=== PATIENT | female | born 1985 | race Caucasian/White ===

== ENCOUNTER 2018-07-15 15:19 | Emergency (ER) | payer OTHER ==
[2018-07-15 15:27] VITALS: RESP 18
[2018-07-15] MEDS ORDERED: ONDANSETRON 4 MG/2 ML VIAL IVP STA (15:49)
[2018-07-15] MEDS ORDERED: KETOROLAC 30 MG/ML 1 ML VIAL IVP STA (15:49)
--- NOTE | 2018-07-15 15:55 | ED ---
Skin/Abscess/FB HPI - General Chief complaint: Skin/Abscess/Foreign Body Stated complaint: Rash Time Seen by Provider: 07/15/18 15:30 Source: patient, RN notes reviewed, old records reviewed Mode of arrival: ambulatory Limitations: no limitations - History of Present Illness Initial comments: Patient 32-year-old female who presents emergency department today with multiple complaints. Patient is here from [facility]. She states that she's had a migraine headache, feels generally unwell. She was initially sent in for a rash over her face and leg. She reports that she's been treated for herpes further rash over her face with past 3 days. Patient states that they will not prescribe her any for further Valtrex. Patient denies any fevers or chills. She denies any abdominal pain. She reports that she had a slight cough. Also complains of dysuria. - Related Data Previous Rx's Medication Instructions Recorded Mupirocin 2% Oint [Bactroban 2% 1 applic TOPICAL TID #60 gm 07/15/18 Oint] valACYclovir HCL [Valtrex] 500 mg PO Q12HR #20 tab 07/15/18 Allergies Allergy/AdvReac Type Severity Reaction Status Date / Time No Known Allergies Allergy Verified 07/15/18 15:27 Review of Systems ROS Statement: Those systems with pertinent positive or pertinent negative responses have been documented in the HPI. ROS Other: All systems not noted in ROS Statement are negative. Past Medical History Additional Past Medical History / Comment(s): Hepatitis C History of Any Multi-Drug Resistant Organisms: MRSA Past Surgical History: Section Past Psychological History: ADD/ADHD, Anxiety, Bipolar, Depression, PTSD Smoking Status: Current every day smoker Past Alcohol Use History: None Reported Past Drug Use History: Marijuana, Methamphetamine, Opiates General Exam - General Exam Comments Initial Comments: 32-year-old female. Limitations: no limitations General appearance: alert, in no apparent distress Head exam: Present: atraumatic, normocephalic, normal inspection Eye exam: Present: normal appearance, PERRL, EOMI. Absent: scleral icterus, conjunctival injection, periorbital swelling ENT exam: Present: normal exam, mucous membranes moist, other (6+ shoulder blisterlike lesions over the right cheek. This with herpes.) Neck exam: Present: normal inspection Respiratory exam: Present: normal lung sounds bilaterally Cardiovascular Exam: Present: regular rate, normal rhythm, normal heart sounds. Absent: systolic murmur, diastolic murmur, rubs, gallop, clicks GI/Abdominal exam: Present: soft, normal bowel sounds. Absent: distended, tenderness, guarding, rebound, rigid Neurological exam: Present: alert, oriented X3, CN II-XII intact Psychiatric exam: Present: normal affect, normal mood Skin exam: Present: warm, dry, intact, normal color, other (10 cm scabbed over scar on the right leg. No surrounding erythema concern for sialitis. She has 1 blister like lesion over her calf as well.). Absent: rash Course Vital Signs 07/15/18 15:20 Temperature 98.2 F Pulse Rate 94 Respiratory 18 Rate Blood Pressure 106/67 O2 Sat by Pulse 100 Oximetry Medical Decision Making - Medical Decision Making 32-year-old female presents with general malaise, since she's had some dysuria and slight cough, and is also here for a rash over her face. She has evidence of herpes Symplex over the right cheek. Just was one lesion over her left leg. She has is some scabbing noted. At this time she has no neurological deficits otherwise. We'll. Lungs are clear to auscultation. She is given IV fluids, and lab work obtained. White blood cell count was normal. Urinalysis shows no infection. Chest x-ray was reviewed and normal. Patient was given IV Toradol and Zofran. She states she has improvement of her headache. Patient at this and will be treated for the herpes Symplex lesions with further prescriptions for Valtrex. Discussed return parameters. All questions answered. - Lab Data Result diagrams: 07/15/18 16:30 07/15/18 16:10 Lab Results 07/15/18 07/15/18 07/15/18 Range/Units 16:10 16:10 16:30 WBC 3.8 (3.8-10.6) k/uL RBC 4.61 (3.80-5.40) m/uL Hgb 13.7 (11.4-16.0) gm/dL Hct 40.3 (34.0-46.0) % MCV 87.5 (80.0-100.0) fL MCH 29.8 (25.0-35.0) pg MCHC 34.0 (31.0-37.0) g/dL RDW 12.9 (11.5-15.5) % Plt Count 186 (150-450) k/uL Neutrophils % 57 % Lymphocytes % 34 % Monocytes % 6 % Eosinophils % 1 % Basophils % 0 % Neutrophils # 2.2 (1.3-7.7) k/uL Lymphocytes # 1.3 (1.0-4.8) k/uL Monocytes # 0.2 (0-1.0) k/uL Eosinophils # 0.0 (0-0.7) k/uL Basophils # 0.0 (0-0.2) k/uL Sodium 141 (137-145) mmol/L Potassium 4.1 (3.5-5.1) mmol/L Chloride 110 H (98-107) mmol/L Carbon Dioxide 27 (22-30) mmol/L Anion Gap 4 mmol/L BUN 17 (7-17) mg/dL Creatinine 0.57 (0.52-1.04) mg/dL Est GFR (CKD-EPI)AfAm >90 (>60 ml/min/1.73 sqM) Est GFR (CKD-EPI)NonAf >90 (>60 ml/min/1.73 sqM) Glucose 95 (74-99) mg/dL Calcium 9.2 (8.4-10.2) mg/dL Urine Color Yellow Urine Appearance Clear (Clear) Urine pH 6.0 (5.0-8.0) Ur Specific [place] 1.019 (1.001-1.035) Urine Protein Negative (Negative) Urine Glucose (UA) Negative (Negative) Urine Ketones Negative (Negative) Urine Blood Negative (Negative) Urine Nitrite Negative (Negative) Urine Bilirubin Negative (Negative) Urine Urobilinogen <2.0 (<2.0) mg/dL Ur Leukocyte Esterase Negative (Negative) - Radiology Data Radiology results: report reviewed Normal chest x-ray Disposition Clinical Impression: Herpes dermatitis Disposition: HOME SELF-CARE Condition: Good Instructions: Oral Herpes Simplex Virus Infections (ED) Additional Instructions: Patient advised to follow-up with primary care provider. Return to emergency department if any alarming signs or symptoms occur. Prescriptions: Mupirocin 2% Oint [Bactroban 2% Oint] 1 applic TOPICAL TID #60 gm valACYclovir HCL [Valtrex] 500 mg PO Q12HR #20 tab Is patient prescribed a controlled substance at d/c from ED?: No Referrals: Tj Carcamo MD [Primary Care Provider] - 1-2 days
[2018-07-15 16:42] LABS: Appearance,Urine Clear (Clear); Bilirubin,Urine Negative (Negative); Blood,Urine Negative (Negative); Color,Urine Yellow; Glucose,Urine (UA) Negative (Negative); Ketones,Urine Negative (Negative); Leukocyte Esterase,Urine Negative (Negative); Nitrite,Urine Negative (Negative); Protein,Urine Negative (Negative); Specific Gravity,Urine 1.019 (1.001-1.035); Urobilinogen,Urine <2.0 mg/dL (<2.0)
--- NOTE | 2018-07-15 16:42 | XR ---
EXAMINATION TYPE: XR chest 2V DATE OF EXAM: 07/15/2018 COMPARISON: NONE HISTORY: Body aches and rash TECHNIQUE: Frontal and lateral views of the chest are obtained. FINDINGS: Heart and mediastinum are normal. Lungs are clear. Diaphragm is normal. Bony thorax appear s normal. IMPRESSION: Normal chest.
[2018-07-15 16:48] LABS: Anion Gap 4 mmol/L; Blood Urea Nitrogen 17 mg/dL (7-17); Calcium 9.2 mg/dL (8.4-10.2); Carbon Dioxide 27 mmol/L (22-30); Chloride 110 mmol/L (98-107); Glucose 95 mg/dL (74-99); Potassium 4.1 mmol/L (3.5-5.1); Sodium 141 mmol/L (137-145)
[2018-07-15 17:08] LABS: Basophils % (A) 0 %; Eosinophils % (A) 1 %; HCT 40.3 % (34.0-46.0); HGB 13.7 gm/dL (11.4-16.0); Lymphocytes # (A) 1.3 k/uL (1.0-4.8); Lymphocytes % (A) 34 %; MCH 29.8 pg (25.0-35.0); MCV 87.5 fL (80.0-100.0); Mean Platelet Volume 7.8; Monocytes # (A) 0.2 k/uL (0-1.0); Monocytes % (A) 6 %; Neutrophils # (A) 2.2 k/uL (1.3-7.7); Neutrophils % (A) 57 %; Platelet Count 186 k/uL (150-450); RBC 4.61 m/uL (3.80-5.40); RDW 12.9 % (11.5-15.5); WBC 3.8 k/uL (3.8-10.6)
[2018-07-15 18:11] VITALS: BP 118/72; PULSE 87; TEMP 98.4
== END 2018-07-15 18:11 | disposition home or self-care (01) ==
LOC: EC 15:19
DX: B00.1 Herpesviral vesicular dermatitis (principal); R05 Cough; R30.0 Dysuria; F17.200 Nicotine dependence, unspecified, uncomplicated; Z86.14 Personal history of Methicillin resistant Staphylococcus aureus infection
CPT/HCPCS: 99284; 96374; 96375; 36415; 80048; 85025; 81003; 71046; J2405; J1885

== ENCOUNTER 2018-12-19 20:56 | Emergency (ER) | payer OTHER ==
[2018-12-19 21:06] VITALS: BP 107/67; PULSE 69; RESP 15; TEMP 98.6
[2018-12-19] MEDS ORDERED: PENICILLIN VK 500MG STARTER 4 TAB BTL PO STA (21:59)
--- NOTE | 2018-12-19 22:04 | ED ---
General Adult HPI - General Chief complaint: Dental/Oral Stated complaint: Mouth abcess Time Seen by Provider: 12/19/18 21:37 Source: patient, RN notes reviewed Mode of arrival: ambulatory Limitations: no limitations - History of Present Illness Initial comments: Patient is a pleasant 32-year-old female presenting to the emergency department with concerns for dental abscess. Onset of symptoms was a day or 2 ago. Patient has noticed swelling. Patient states she knows her abscess first and now she tastes pus. Patient does have history of previous problem with this tooth. Discomfort is moderate. Patient is currently at [facility]. - Related Data Home Medications Medication Instructions Recorded Confirmed Acetaminophen [Tylenol 8 Hour] 650 mg PO Q4H PRN MDD 6 TABS/24HR 12/19/18 12/19/18 Amoxicillin 500 mg PO TID@0630,1530,2100 12/19/18 12/19/18 Calcium 1000mg/Magnesium 500mg 1 tab PO TID PRN 12/19/18 12/19/18 Ibuprofen [Motrin] 600 mg PO Q6H PRN 12/19/18 12/19/18 Multivitamins, Thera [Multivitamin 1 tab PO DAILY 12/19/18 12/19/18 (formulary)] Ondansetron Odt [Zofran Odt] 8 mg PO Q6H PRN 12/19/18 12/19/18 Ondansetron [Zofran] 4 mg IM Q6H PRN 12/19/18 12/19/18 Thiamine [Vitamin B-1] 100 mg PO DAILY 12/19/18 12/19/18 buPROPion XL [Wellbutrin Xl] 300 mg PO DAILY@0600 12/19/18 12/19/18 busPIRone HCl [Buspar] 10 mg PO DIRECTED PRN 12/19/18 12/19/18 cloNIDine HCL [Catapres] 0.1 mg PO Q4H PRN 12/19/18 12/19/18 Previous Rx's Medication Instructions Recorded Penicillin V Potassium [Pen Vee K] 500 mg PO QID #40 tablet 12/19/18 Allergies Allergy/AdvReac Type Severity Reaction Status Date / Time No Known Allergies Allergy Verified 12/19/18 21:35 Review of Systems ROS Statement: Those systems with pertinent positive or pertinent negative responses have been documented in the HPI. ROS Other: All systems not noted in ROS Statement are negative. Constitutional: Denies: fever Eyes: Denies: eye pain ENT: Reports: dental pain. Denies: ear pain Respiratory: Denies: dyspnea Cardiovascular: Denies: chest pain Endocrine: Denies: fatigue Gastrointestinal: Denies: abdominal pain Genitourinary: Denies: dysuria Musculoskeletal: Denies: back pain Skin: Denies: rash Neurological: Denies: weakness Past Medical History Past Medical History: Renal Disease Additional Past Medical History / Comment(s): Hepatitis C History of Any Multi-Drug Resistant Organisms: MRSA Past Surgical History: Section Past Psychological History: ADD/ADHD, Anxiety, Bipolar, Depression, PTSD Smoking Status: Current every day smoker Past Alcohol Use History: None Reported Past Drug Use History: Marijuana, Methamphetamine, Opiates General Exam Limitations: no limitations General appearance: alert, in no apparent distress Head exam: Present: atraumatic Eye exam: Present: normal appearance, PERRL ENT exam: Present: other (Right upper third premolar with significant DKA. Laterally there is mild swelling with purulent drainage. No significant facial swelling.) Neck exam: Present: normal inspection. Absent: tenderness Respiratory exam: Present: normal lung sounds bilaterally Cardiovascular Exam: Present: regular rate, normal rhythm GI/Abdominal exam: Present: soft. Absent: tenderness Extremities exam: Present: normal inspection Neurological exam: Present: alert Psychiatric exam: Present: normal affect, normal mood Skin exam: Absent: rash Course Vital Signs 12/19/18 21:01 Temperature 98.6 F Pulse Rate 69 Respiratory 15 Rate Blood Pressure 107/67 O2 Sat by Pulse 100 Oximetry Disposition Clinical Impression: Dental abscess Disposition: HOME SELF-CARE Condition: Stable Instructions (If sedation given, give patient instructions): Dental Abscess (ED) Additional Instructions: Please follow-up with dentist in the next couple days for recheck. Continue [id number] Tylenol or Motrin as needed. Return for facial swelling, fevers, worsening symptoms or other concerns. Prescriptions: Penicillin V Potassium [Pen Vee K] 500 mg PO QID #40 tablet Is patient prescribed a controlled substance at d/c from ED?: No Referrals: Tj Carcamo MD [Primary Care Provider] - 1-2 days Time of Disposition: 22:03
== END 2018-12-19 22:56 | disposition home or self-care (01) ==
LOC: EC 20:56
DX: K04.7 Periapical abscess without sinus (principal); F41.9 Anxiety disorder, unspecified; F32.9 Major depressive disorder, single episode, unspecified; F43.10 Post-traumatic stress disorder, unspecified; F17.200 Nicotine dependence, unspecified, uncomplicated; Z86.14 Personal history of Methicillin resistant Staphylococcus aureus infection; Z79.899 Other long term (current) drug therapy
CPT/HCPCS: 99282

== ENCOUNTER 2019-03-10 09:17 | Emergency (ER) | payer OTHER ==
[2019-03-10 09:43] VITALS: BP 113/70; PULSE 71; RESP 18; TEMP 98.3
--- NOTE | 2019-03-10 10:50 | ED ---
General Adult HPI - General Chief complaint: Extremity Injury, Lower Stated complaint: edema in lower extremities Time Seen by Provider: 03/10/19 10:19 Source: patient, RN notes reviewed Mode of arrival: ambulatory Limitations: no limitations - History of Present Illness Initial comments: Madisyn is a 33-year-old female with a past medical history of renal disease, hepatitis C who presents to the emergency department for a chief complaint of bilateral lower extremity swelling. Patient states that she is currently at [facility] for cough medicine abuse. States that she does have a history of IV drug abuse but that this was 3 years ago. States she went to [facility] on . States she started to have lower extremity swelling on Sunday. States she has pain in the calves of her lower extremities. States the left leg is more painful than the right. Denies shortness of breath, does admit to smoking. Denies chest pain.Patient has no other complaints at this time including shortness of breath, chest pain, abdominal pain, nausea or vomiting, headache, or visual changes. - Related Data Home Medications Medication Instructions Recorded Confirmed Acetaminophen [Tylenol 8 Hour] 650 mg PO Q4H PRN MDD 6 TABS/24HR 12/19/18 03/10/19 Calcium 1000mg/Magnesium 500mg 1 tab PO TID PRN 12/19/18 03/10/19 Ibuprofen [Motrin] 600 mg PO Q6H PRN 12/19/18 03/10/19 Multivitamins, Thera [Multivitamin 1 tab PO DAILY 12/19/18 03/10/19 (formulary)] Ondansetron Odt [Zofran Odt] 8 mg PO Q6H PRN 12/19/18 03/10/19 buPROPion XL [Wellbutrin Xl] 300 mg PO DAILY@0600 12/19/18 03/10/19 cloNIDine HCL [Catapres] 0.1 mg PO Q4H PRN 12/19/18 03/10/19 Buprenorphine HCl/Naloxone HCl 1 film SL DAILY 03/10/19 03/10/19 [Buprenorp-Nalox 4-1 mg Sl Film] Cyproheptadine [Cyproheptadine HCl] 4 mg PO Q4H PRN 03/10/19 03/10/19 Hyoscyamine Sulfate [Levsin] 0.125 mg SL QID PRN 03/10/19 03/10/19 Mirtazapine [Remeron] 15 mg PO HS PRN 03/10/19 03/10/19 Mylanta 30 ml PO Q4H 03/10/19 03/10/19 cloNIDine HCL [Catapres] 1 - 2 tab PO Q4H PRN 03/10/19 03/10/19 Allergies Allergy/AdvReac Type Severity Reaction Status Date / Time No Known Allergies Allergy Verified 03/10/19 10:55 Review of Systems ROS Statement: Those systems with pertinent positive or pertinent negative responses have been documented in the HPI. ROS Other: All systems not noted in ROS Statement are negative. Past Medical History Past Medical History: Renal Disease Additional Past Medical History / Comment(s): Hepatitis C History of Any Multi-Drug Resistant Organisms: MRSA Past Surgical History: Section Past Psychological History: ADD/ADHD, Anxiety, Bipolar, Depression, PTSD Smoking Status: Current every day smoker Past Alcohol Use History: None Reported Past Drug Use History: Marijuana, Methamphetamine, Opiates General Exam - General Exam Comments Initial Comments: Left lower extremity: DP pulse 2+, capillary refill less than 2 seconds. Mild nonpitting edema noted which is equal to the right lower extremity. No erythema or increased warmth. Patient does have moderate tenderness when palpating the left calf. Right lower extremity: DP pulse 2+, capillary refill less than 2 seconds. Mild nonpitting edema noted which is equal to the left lower extremity. No erythema or increased warmth. mild tenderness when palpating right calf Limitations: no limitations General appearance: alert, in no apparent distress Head exam: Present: atraumatic, normocephalic, normal inspection Eye exam: Present: normal appearance, PERRL, EOMI. Absent: scleral icterus, conjunctival injection, periorbital swelling ENT exam: Present: normal exam, mucous membranes moist Neck exam: Present: normal inspection, full ROM. Absent: tenderness, meningismus, lymphadenopathy Respiratory exam: Present: normal lung sounds bilaterally. Absent: respiratory distress, wheezes, rales, rhonchi, stridor Cardiovascular Exam: Present: regular rate, normal rhythm, normal heart sounds. Absent: systolic murmur, diastolic murmur, rubs, gallop, clicks GI/Abdominal exam: Present: soft, normal bowel sounds. Absent: distended, ten derness, guarding, rebound, rigid Course Vital Signs 03/10/19 09:39 Temperature 98.3 F Pulse Rate 71 Respiratory 18 Rate Blood Pressure 113/70 O2 Sat by Pulse 99 Oximetry Medical Decision Making - Medical Decision Making Madisyn is a 33-year-old female with a past medical history renal disease, hepatitis C who presents to the emergency department for bilateral lower extremity swelling. This has been ongoing for 3 days. No shortness of breath or chest pain. Exam reveals mild edema in bilateral distal lower extremities, nonpitting. No erythema or evidence of infection. Neurovascular status intact. CBC and CMP is unremarkable. Kidney function stable. Urine negative for proteins. Chest x-ray shows no acute cardiopulmonary process including pleural effusion. Ultrasound of the bilateral lower extremities is negative. No evidence of heart failure. At this time patient likely has a dependent edema versus heat edema. Discussed following up with her primary care provider in one to 2 days. Discussed returning here if she has any worsening symptoms. - Lab Data Result diagrams: 03/10/19 11:33 03/10/19 11:33 Lab Results 03/10/19 03/10/19 03/10/19 Range/Units 11:33 11:33 11:33 WBC 3.4 L (3.8-10.6) k/uL RBC 4.38 (3.80-5.40) m/uL Hgb 13.4 (11.4-16.0) gm/dL Hct 40.6 (34.0-46.0) % MCV 92.8 (80.0-100.0) fL MCH 30.7 (25.0-35.0) pg MCHC 33.0 (31.0-37.0) g/dL RDW 14.9 (11.5-15.5) % Plt Count 173 (150-450) k/uL Neutrophils % 52 % Lymphocytes % 35 % Monocytes % 6 % Eosinophils % 3 % Basophils % 0 % Neutrophils # 1.8 (1.3-7.7) k/uL Lymphocytes # 1.2 (1.0-4.8) k/uL Monocytes # 0.2 (0-1.0) k/uL Eosinophils # 0.1 (0-0.7) k/uL Basophils # 0.0 (0-0.2) k/uL Sodium 139 (137-145) mmol/L Potassium 4.1 (3.5-5.1) mmol/L Chloride 108 H (98-107) mmol/L Carbon Dioxide 28 (22-30) mmol/L Anion Gap 3 mmol/L BUN 11 (7-17) mg/dL Creatinine 0.55 (0.52-1.04) mg/dL Est GFR (CKD-EPI)AfAm >90 (>60 ml/min/1.73 sqM) Est GFR (CKD-EPI)NonAf >90 (>60 ml/min/1.73 sqM) Glucose 77 (74-99) mg/dL Plasma Lactic Acid Juan (0.7-2.0) mmol/L Calcium 9.3 (8.4-10.2) mg/dL Total Bilirubin 0.3 (0.2-1.3) mg/dL AST 34 (14-36) U/L ALT 39 (9-52) U/L Alkaline Phosphatase 67 (38-126) U/L Troponin I (0.000-0.034) ng/mL NT-Pro-B Natriuret Pep pg/mL Total Protein 6.2 L (6.3-8.2) g/dL Albumin 3.6 (3.5-5.0) g/dL Urine Color Urine Appearance (Clear) Urine pH (5.0-8.0) Ur Specific [place] (1.001-1.035) Urine Protein (Negative) Urine Glucose (UA) (Negative) Urine Ketones (Negative) Urine Blood (Negative) Urine Nitrite (Negative) Urine Bilirubin (Negative) Urine Urobilinogen (<2.0) mg/dL Ur Leukocyte Esterase (Negative) Ur Squamous Epith Cells (0-4) /hpf Amorphous Sediment (None) /hpf Urine Bacteria (None) /hpf Urine Mucus (None) /hpf Urine HCG, Qual Not Detected (Not Detectd) 03/10/19 03/10/19 03/10/19 Range/Units 11:33 11:33 11:33 WBC (3.8-10.6) k/uL RBC (3.80-5.40) m/uL Hgb (11.4-16.0) gm/dL Hct (34.0-46.0) % MCV (80.0-100.0) fL MCH (25.0-35.0) pg MCHC (31.0-37.0) g/dL RDW (11.5-15.5) % Plt Count (150-450) k/uL Neutrophils % % Lymphocytes % % Monocytes % % Eosinophils % % Basophils % % Neutrophils # (1.3-7.7) k/uL Lymphocytes # (1.0-4.8) k/uL Monocytes # (0-1.0) k/uL Eosinophils # (0-0.7) k/uL Basophils # (0-0.2) k/uL Sodium (137-145) mmol/L Potassium (3.5-5.1) mmol/L Chloride (98-107) mmol/L Carbon Dioxide (22-30) mmol/L Anion Gap mmol/L BUN (7-17) mg/dL Creatinine (0.52-1.04) mg/dL Est GFR (CKD-EPI)AfAm (>60 ml/min/1.73 sqM) Est GFR (CKD-EPI)NonAf (>60 ml/min/1.73 sqM) Glucose (74-99) mg/dL Plasma Lactic Acid Juan 0.7 (0.7-2.0) mmol/L Calcium (8.4-10.2) mg/dL Total Bilirubin (0.2-1.3) mg/dL AST (14-36) U/L ALT (9-52) U/L Alkaline Phosphatase (38-126) U/L Troponin I <0.012 (0.000-0.034) ng/mL NT-Pro-B Natriuret Pep 301 pg/mL Total Protein (6.3-8.2) g/dL Albumin (3.5-5.0) g/dL Urine Color Urine Appearance (Clear) Urine pH (5.0-8.0) Ur Specific [place] (1.001-1.035) Urine Protein (Negative) Urine Glucose (UA) (Negative) Urine Ketones (Negative) Urine Blood (Negative) Urine Nitrite (Negative) Urine Bilirubin (Negative) Urine Urobilinogen (<2.0) mg/dL Ur Leukocyte Esterase (Negative) Ur Squamous Epith Cells (0-4) /hpf Amorphous Sediment (None) /hpf Urine Bacteria (None) /hpf Urine Mucus (None) /hpf Urine HCG, Qual (Not Detectd) 03/10/19 Range/Units 11:33 WBC (3.8-10.6) k/uL RBC (3.80-5.40) m/uL Hgb (11.4-16.0) gm/dL Hct (34.0-46.0) % MCV (80.0-100.0) fL MCH (25.0-35.0) pg MCHC (31.0-37.0) g/dL RDW (11.5-15.5) % Plt Count (150-450) k/uL Neutrophils % % Lymphocytes % % Monocytes % % Eosinophils % % Basophils % % Neutrophils # (1.3-7.7) k/uL Lymphocytes # (1.0-4.8) k/uL Monocytes # (0-1.0) k/uL Eosinophils # (0-0.7) k/uL Basophils # (0-0.2) k/uL Sodium (137-145) mmol/L Potassium (3.5-5.1) mmol/L Chloride (98-107) mmol/L Carbon Dioxide (22-30) mmol/L Anion Gap mmol/L BUN (7-17) mg/dL Creatinine (0.52-1.04) mg/dL Est GFR (CKD-EPI)AfAm (>60 ml/min/1.73 sqM) Est GFR (CKD-EPI)NonAf (>60 ml/min/1.73 sqM) Glucose (74-99) mg/dL Plasma Lactic Acid Juan (0.7-2.0) mmol/L Calcium (8.4-10.2) mg/dL Total Bilirubin (0.2-1.3) mg/dL AST (14-36) U/L ALT (9-52) U/L Alkaline Phosphatase (38-126) U/L Troponin I (0.000-0.034) ng/mL NT-Pro-B Natriuret Pep pg/mL Total Protein (6.3-8.2) g/dL Albumin (3.5-5.0) g/dL Urine Color Yellow Urine Appearance Cloudy H (Clear) Urine pH 7.0 (5.0-8.0) Ur Specific [place] 1.018 (1.001-1.035) Urine Protein Negative (Negative) Urine Glucose (UA) Negative (Negative) Urine Ketones Negative (Negative) Urine Blood Negative (Negative) Urine Nitrite Negative (Negative) Urine Bilirubin Negative (Negative) Urine Urobilinogen <2.0 (<2.0) mg/dL Ur Leukocyte Esterase Negative (Negative) Ur Squamous Epith Cells 1 (0-4) /hpf Amorphous Sediment Many H (None) /hpf Urine Bacteria Few H (None) /hpf Urine Mucus Rare H (None) /hpf Urine HCG, Qual (Not Detectd) Disposition Clinical Impression: Lower extremity edema Disposition: HOME SELF-CARE Condition: Good Instructions (If sedation given, give patient instructions): Leg Edema (ED) Additional Instructions: Please keep legs elevated while sitting. Use compression stockings. Follow up with primary care in 1-2 days. If you begin to have worsening symptoms return here to the emergency department. Is patient prescribed a controlled substance at d/c from ED?: No Referrals: Tj Carcamo MD [Primary Care Provider] - 1-2 days Time of Disposition: 13:50
[2019-03-10 11:47] LABS: Basophils % (A) 0 %; Eosinophils # (A) 0.1 k/uL (0-0.7); Eosinophils % (A) 3 %; HCT 40.6 % (34.0-46.0); HGB 13.4 gm/dL (11.4-16.0); Lymphocytes # (A) 1.2 k/uL (1.0-4.8); Lymphocytes % (A) 35 %; MCH 30.7 pg (25.0-35.0); MCV 92.8 fL (80.0-100.0); Mean Platelet Volume 7.8; Monocytes # (A) 0.2 k/uL (0-1.0); Monocytes % (A) 6 %; Neutrophils # (A) 1.8 k/uL (1.3-7.7); Neutrophils % (A) 52 %; Platelet Count 173 k/uL (150-450); RBC 4.38 m/uL (3.80-5.40); RDW 14.9 % (11.5-15.5); WBC 3.4 k/uL (3.8-10.6)
[2019-03-10 11:51] LABS: ALT 39 U/L (9-52); AST 34 U/L (14-36); African American GFR (CKD) >90 (>60 ml/min/1.73 sqM); Albumin 3.6 g/dL (3.5-5.0); Alkaline Phosphatase 67 U/L (38-126); Anion Gap 3 mmol/L; Blood Urea Nitrogen 11 mg/dL (7-17); Calcium 9.3 mg/dL (8.4-10.2); Carbon Dioxide 28 mmol/L (22-30); Chloride 108 mmol/L (98-107); Glucose 77 mg/dL (74-99); Potassium 4.1 mmol/L (3.5-5.1); Sodium 139 mmol/L (137-145); Total Bilirubin 0.3 mg/dL (0.2-1.3); Total Protein 6.2 g/dL (6.3-8.2)
[2019-03-10 11:58] LABS: Amorphous Sediment,Urine Many /hpf; Appearance,Urine Cloudy (Clear); Bacteria,Urine Few /hpf; Bilirubin,Urine Negative (Negative); Blood,Urine Negative (Negative); Color,Urine Yellow; Glucose,Urine (UA) Negative (Negative); Ketones,Urine Negative (Negative); Leukocyte Esterase,Urine Negative (Negative); Mucus,Urine Rare /hpf; Nitrite,Urine Negative (Negative); Protein,Urine Negative (Negative); Specific Gravity,Urine 1.018 (1.001-1.035); Squamous Epithelial Cell,Urine 1 /hpf (0-4); Urobilinogen,Urine <2.0 mg/dL (<2.0)
--- NOTE | 2019-03-10 12:36 | XR ---
EXAMINATION TYPE: XR chest 2V DATE OF EXAM: 03/10/2019 COMPARISON: Prior chest x-ray 07/15/2018 HISTORY: Shortness of breath and limb swelling TECHNIQUE: Frontal and lateral views of the chest are obtained. FINDINGS: There is no focal air space opacity, pleural effusion, or pneumothorax seen. The cardiac silhouette size is within normal limits. The osseous structures are intact. IMPRESSION: No acute cardiopulmonary process.
--- NOTE | 2019-03-10 13:03 | US ---
EXAMINATION TYPE: US venous doppler duplex LE DATE OF EXAM: 03/10/2019 10:37 AM COMPARISON: NONE CLINICAL HISTORY: pain, swelling, DVT hx. Bilateral feet pain and swelling SIDE PERFORMED: Bilateral TECHNIQUE: The lower extremity deep venous system is examined utilizing real time linear array sonog jonathon with graded compression, doppler sonography and color-flow sonography. VESSELS IMAGED: External Iliac Vein (EIV) Common Femoral Vein Deep Femoral Vein Greater Saphenous Vein * Femoral Vein Popliteal Vein Small Saphenous Vein * Proximal Calf Veins (* superficial vessels) Right Leg: Appears negative for DVT Left Leg: Appears negative for DVT IMPRESSION: 1. No diagnostic evidence of DVT as visualized
== END 2019-03-10 14:22 | disposition home or self-care (01) ==
LOC: EC 09:17
DX: R60.0 Localized edema (principal); M79.661 Pain in right lower leg; M79.662 Pain in left lower leg; F19.10 Other psychoactive substance abuse, uncomplicated; F31.9 Bipolar disorder, unspecified; F17.200 Nicotine dependence, unspecified, uncomplicated; Z79.891 Long term (current) use of opiate analgesic; Z79.899 Other long term (current) drug therapy; Z86.14 Personal history of Methicillin resistant Staphylococcus aureus infection
CPT/HCPCS: 36415; 71046; 80053; 81001; 81025; 83605; 83880; 84484; 85025; 93970; 99284

== ENCOUNTER → 2021-04-05 | Outpatient (CLI) | payer OTHER ==
[2021-04-06 01:01] LABS: ALT 19 U/L (8-44); AST 19 U/L (13-35); Albumin/Globulin Ratio 1.91 (1.60-3.17); Alkaline Phosphatase 64 U/L (41-126); Bilirubin, Conjugated <0.20 mg/dL (0.20-0.40); Globulin 2.3 g/dL (1.6-3.3); Total Bilirubin 0.4 mg/dL (0.2-1.2); Total Protein 6.7 g/dL (6.2-8.2)
== END | disposition home or self-care (01) ==
LOC: LABWHC1 12:03
PROVIDERS: ATTEND Internal Medicine Gastroenterology
DX: B18.2 Chronic viral hepatitis C (principal)
CPT/HCPCS: 36415; 80076; 87522

== ENCOUNTER → 2021-04-05 | Outpatient (CLI) | payer OTHER ==
--- NOTE | 2021-04-05 12:09 | CT ---
EXAMINATION TYPE: CT brain wo con DATE OF EXAM: 04/05/2021 COMPARISON: None HISTORY: Daily migraine, bells palsy. CT DLP: [address] of the brain was performed. The ventricles, basal cisterns and sulci overlying the cerebral convexities demonstrate a normal appe arance. There is no evidence for intracranial hemorrhage or sulcal effacement. No mass effects are seen. Osseous calvarium is intact. If symptoms persist consider MRI as clinically warranted. IMPRESSION: 1. No acute intracranial process is seen at this time.
== END | disposition home or self-care (01) ==
LOC: RADCTMAIN 11:42
PROVIDERS: ATTEND Internal Medicine
DX: G43.909 Migraine, unspecified, not intractable, without status migrainosus (principal); G51.0 Bell's palsy
CPT/HCPCS: 70450

== ENCOUNTER → 2022-09-04 | Outpatient (CLI) | payer OTHER ==
[2022-09-04 15:52] LABS: Partial Thromboplastin Time 24.9 sec (22.0-30.0); Prothrombin Time 10.4 sec (9.0-12.0)
[2022-09-04 18:37] LABS: Basophils # (A) 0.01 X 10*3/uL (0.00-0.10); Basophils % (A) 0.2 %; Eosinophils # (A) 0.03 X 10*3/uL (0.04-0.35); Eosinophils % (A) 0.7 %; HCT 42.7 % (37.2-46.3); HGB 14.3 g/dL (12.0-15.0); Immature Grans, Automated 0.2 %; Lymphocytes # (A) 1.41 X 10*3/uL (0.90-5.00); Lymphocytes % (A) 34.1 %; MCH 29.7 pg (27.0-32.0); MCHC 33.5 g/dL (32.0-37.0); MCV 88.6 fL (80.0-97.0); Mean Platelet Volume 12.4 fL (9.5-12.2); Monocytes # (A) 0.25 X 10*3/uL (0.20-1.00); NRBC Per 100 WBC 0 /100 WBCS (0.0-0.0); Neutrophils # (A) 2.43 X 10*3/uL (1.80-7.70); Neutrophils % (A) 58.8 %; Platelet Count 208 X 10*3/uL (140-440); RBC 4.82 X 10*6/uL (4.10-5.20); RDW 12.3 % (11.5-14.5); WBC 4.14 X 10*3/uL (4.50-10.00)
[2022-09-05 10:21] LABS: Albumin 4.4 g/dL (3.8-4.9); Anion Gap 9.7 mmol/L (10.00-18.00); Carbon Dioxide 23.3 mmol/L (20.0-27.5); Potassium 4.2 mmol/L (3.5-5.5)
== END | disposition home or self-care (01) ==
LOC: LABWHC1 13:12
PROVIDERS: ATTEND Podiatrist
DX: Z01.812 Encounter for preprocedural laboratory examination (principal); B19.20 Unspecified viral hepatitis C without hepatic coma
CPT/HCPCS: 36415; 80051; 82040; 85025; 85610; 85730

== ENCOUNTER 2022-09-08 06:08 | Day surgery (SDC) | payer OTHER ==
[2022-09-04 09:36] VITALS: BMI 42.5
[~2022-09-08 06:08] MED LIST: DEXAMETHASONE SOD PHOSPHATE 4 MG/ML 1 ML VIAL IV ONE; LACTATED RINGERS 1,000 ML IV SCH; LIDOCAINE 1% (10MG/ML) FOR IV START INTRADERMA PRN; ONDANSETRON 4 MG/2 ML VIAL IVP ONE
[2022-09-08] MEDS ORDERED: HYDROmorphone 0.5 MG/0.5 ML SYRINGE IVP PRN (07:00)
[2022-09-08] MEDS ORDERED: MIDAZOLAM 2 MG/2 ML VIAL IVP ONE (07:06)
[2022-09-08 07:26] VITALS: RESP 16
[2022-09-08] MEDS ORDERED: ceFAZolin 1,000 MG in SODIUM CHLORIDE 0.9% 1,000 ML IRRIGATION ONE (07:29)
--- NOTE | 2022-09-08 07:32 | P.ANPRN ---
Procedure Note - Anesthesia - Nerve Block Performed Left Adductor Canal Single Time Out Performed: Yes Date of Procedure: 09/08/22 Procedure Start Time: 07:05 Procedure Stop Time: 07:12 Location of Patient: PreOp Indication: Acute Post-Operative Pain, Requested by Surgeon Sedation Type: Sedate with meaningful contact maintained Preparation: Sterile Prep, Sterile Dressing Position: Supine Catheter: None Needle Types: Facet Needle Gauge: 20 Ultrasound used to visualize needle placement: Yes Ultrasound used to observe medication spread: Yes Injectate: 0.5% Ropivacaine (see comment for volume) (15 ml + decadron 4 mg) Blood Aspirated: No Pain Paresthesia on Injection Noted: No Resistance on Injection: Normal Image Stored and Saved: Yes Events: Uneventful and Well Tolerated Left Popliteal Single Time Out Performed: Yes Date of Procedure: 09/08/22 Procedure Start Time: 07:14 Procedure Stop Time: 07:24 Location of Patient: PreOp Indication: Acute Post-Operative Pain, Requested by Surgeon Sedation Type: Sedate with meaningful contact maintained Preparation: Sterile Prep, Sterile Dressing Position: Right Lateral Catheter: None Needle Types: Facet Needle Gauge: 20 Ultrasound used to visualize needle placement: Yes Ultrasound used to observe medication spread: Yes Injectate: 0.5% Ropivacaine (see comment for volume) (15 ml + decadron 4 mg) Blood Aspirated: No Pain Paresthesia on Injection Noted: No Resistance on Injection: Normal Image Stored and Saved: Yes Events: Uneventful and Well Tolerated
--- NOTE | 2022-09-08 08:30 | P.OP ---
Date of Procedure: 09/08/22 Preoperative Diagnosis: Left ankle instability Postoperative Diagnosis: 1. Left ankle instability 2. Loose body left ankle Procedure(s) Performed: 1. Secondary repair of left lateral ankle ligaments 2. Arthrotomy with loose body removal left ankle Implants: Arthrex internal brace Arthrex fiber Taj anchors 2 Anesthesia: GETA Surgeon: Suman Johnson Estimated Blood Loss (ml): 1 Pathology: none sent Condition: stable Disposition: PACU Description of Procedure: Prior to the patient being brought to the operating room, anesthesia administered a nerve block on the affected extremity, utilizing ultrasonic guidance and mild sedation. Once completed the patient was taken to the operating room and placed on table supine position. Timeout was taken to confirm correct patient identifiers, correct procedure, and correct site of surgery. When all staff in the room were in agreement with the timeout, the patient was induced and placed under general anesthesia. A bump was placed underneath the hip to internally rotate the affected leg. A well-padded tourniquet was placed on the midcalf and then the affected extremity prepped and draped in usual manner. The leg was exsanguinated and the tourniquet inflated to 250 mmHg. Attention was directed over the lateral ankle where a curved incision was made just anterior to the lateral malleolus. The incision was deepened down to the subcutaneous tissue careful to identify, avoid, and retract any neurovascular structures and cauterize any bleeding vessels. Blunt dissection was continued down to level of the lateral ankle joint capsule and ligamentous structures. The soft tissue structures were sharply incised off the anterior surface the lateral malleolus and reflected anteriorly. A ronguer was used to remove the cortical bone off the anterior surface the lateral malleolus which would help facilitate tissue re-adhesion upon repair. There is also a osseous loose body within the lateral ankle joint capsular tissue. The loose body was sharply excised from the soft tissue and removed from the surgical field. With the ankle at 90 and in neutral inversion and eversion, the capsule was palpated on the lateral surface of the talus anterior to the articular surface. A small stab incision was made in the area of the talar body avoiding both the ankle and subtalar joints and near the junction of the neck. A drill hole was then placed utilizing a 3.4 mm drill bit into the talar body avoiding both the ankle and subtalar joints. The hole was then tapped and then the 4.75 mm swivel lock anchor was inserted and impacted and then advanced to proper depth. The same drill bit was used to create the hole for the 3.5 mm anchor in the lateral malleolus. Drill holes for the Arthrex fiber Roberto anchors were made one inferior and one superior to the 3.4 mm drill hole in the lateral malleolus. With the drill guides for the anchor still in place, the anchors were inserted into the lateral malleolus and impacted to proper depth. The manufacturing supervisor and guide were removed and then tension placed on the suture to lock anchors in place. Once both anchors were in place the wound was thoroughly irrigated with antibiotic saline. The suture on the fiber Taj anchors was then used to capture the distal ligamentous and capsular structures on the talus and then with the ankle in maximum dorsiflexion and eversion, the suture was tied repairing the ligament. The 2 arms of the internal brace suture were then passed through the 3.5 mm anchor which was then aligned with the drill hole lateral malleolus. Utilizing described tensioning techniques, the anchor and suture were inserted into the drill hole and then the anchor advanced to lock the suture in place. At that time the ankle was tested for stability where anterior drawer and inversion stress were both negative. The wound was again irrigated with antibiotic saline. The fiber Taj suture was used to sew the retinaculum over the lateral malleolus along with the periosteal flap in a pants over vest fashion. Subcu closure was done with 4-0 Monocryl and skin closure done with 3- 0 Stratafix in a running subcuticular manner. Dermal glue was applied across the incision and allowed to dry. Steri-Strips are placed across incision. The incision was covered with an Arthrex jumpstart dressing and then a bulky dry dressing. The tourniquet was released and capillary refill return to all digits on the right foot. The patient was then placed a below-knee fracture boot holding the ankle neutral position. Anesthesia was reversed and the patient was taken recovery with vital signs stable.
[2022-09-08 08:40] VITALS: TEMP 96.9
[2022-09-08 10:00] VITALS: BP 103/58; PULSE 71
[2022-09-08] MEDS ORDERED: IBUPROFEN 600 MG TAB PO ONE (10:16)
== END 2022-09-08 10:21 | disposition home or self-care (01) ==
LOC: OR 06:08
PROVIDERS: ATTEND Podiatrist
DX: M25.372 Other instability, left ankle (principal); M24.072 Loose body in left ankle; G89.18 Other acute postprocedural pain; J45.909 Unspecified asthma, uncomplicated; Z87.891 Personal history of nicotine dependence; E66.01 Morbid (severe) obesity due to excess calories; Z68.41 Body mass index [BMI] 40.0-44.9, adult; F19.10 Other psychoactive substance abuse, uncomplicated; Z79.1 Long term (current) use of non-steroidal anti-inflammatories (NSAID); Z98.890 Other specified postprocedural states; Z83.3 Family history of diabetes mellitus; Z79.899 Other long term (current) drug therapy
CPT/HCPCS: 64447; 81025; 64445; 76942; 27620; 27695; C1713 ×2; J2250; J1100; J0690 ×2; J2405; J1790

== ENCOUNTER → 2022-11-23 | Outpatient (CLI) | payer OTHER ==
[2022-11-23 22:00] LABS: Basophils # (A) 0.01 X 10*3/uL (0.00-0.10); Basophils % (A) 0.3 %; Eosinophils # (A) 0.02 X 10*3/uL (0.04-0.35); Eosinophils % (A) 0.5 %; HCT 43.4 % (37.2-46.3); HGB 14.5 g/dL (12.0-15.0); Immature Grans, Automated 0.3 %; Lymphocytes # (A) 1.38 X 10*3/uL (0.90-5.00); Lymphocytes % (A) 36.8 %; MCH 29.4 pg (27.0-32.0); MCHC 33.4 g/dL (32.0-37.0); MCV 87.9 fL (80.0-97.0); Mean Platelet Volume 11.6 fL (9.5-12.2); Monocytes # (A) 0.21 X 10*3/uL (0.20-1.00); Monocytes % (A) 5.6 %; NRBC Per 100 WBC 0 /100 WBCS (0.0-0.0); Neutrophils # (A) 2.12 X 10*3/uL (1.80-7.70); Neutrophils % (A) 56.5 %; Platelet Count 196 X 10*3/uL (140-440); RBC 4.94 X 10*6/uL (4.10-5.20); RDW 11.9 % (11.5-14.5); WBC 3.75 X 10*3/uL (4.50-10.00)
[2022-11-23 22:54] LABS: Erythrocyte Sedimentation Rate 4 mm/Hr (0-20)
[2022-11-24 00:24] LABS: Gliadin AB IgA, Deaminated POSITIVE (NEGATIVE); Gliadin AB IgA, Unit 34.2 U/mL; Gliadin AB IgG, Deaminated NEGATIVE (NEGATIVE); Gliadin AB IgG, Unit <0.4 U/mL
[2022-11-24 00:27] LABS: ALT 15 U/L (8-44); AST 14 U/L (13-35); African American GFR (CKD) 110.3 (60.0-200.0); Albumin 4.4 g/dL (3.8-4.9); Albumin/Globulin Ratio 2.08 (1.60-3.17); Alkaline Phosphatase 61 U/L (41-126); BUN/Creat Ratio 17.42 Ratio (12.00-20.00); Blood Urea Nitrogen 13.9 mg/dL (9.0-27.0); C Reactive Protein <0.30 mg/dL (0.00-0.80); Calcium 9.3 mg/dL (8.7-10.3); Carbon Dioxide 18.5 mmol/L (20.0-27.5); Chloride 109 mmol/L (96-109); Globulin 2.1 g/dL (1.6-3.3); Glucose 106 mg/dL (70-110); Non-African American GFR(CKD) 95.1 (60.0-200.0); Potassium 3.6 mmol/L (3.5-5.5); Sodium 142 mmol/L (135-145); Total Protein 6.5 g/dL (6.2-8.2)
== END | disposition home or self-care (01) ==
LOC: LABWHC1 13:15
PROVIDERS: ATTEND Nurse Practitioner Family
DX: R19.4 Change in bowel habit (principal)
CPT/HCPCS: 36415; 80053; 83516; 85025; 85652; 86140

== ENCOUNTER → 2023-01-17 | Outpatient (CLI) | payer OTHER ==
--- NOTE | 2023-01-17 09:51 | XR ---
EXAMINATION TYPE: XR chest 2V DATE OF EXAM: 01/17/2023 COMPARISON: 03/10/2019 TECHNIQUE: PA and lateral views submitted. HISTORY: Preop FINDINGS: The lungs are clear and there is no pneumothorax, pleural effusion, or focal pneumonia. Heart size normal and no overt failure. Osseous structures intact. Small sclerotic lesion right humeral head sta ble with normal IMPRESSION: 1. No acute process.
[2023-01-17 16:53] LABS: BUN/Creat Ratio 19.62 Ratio (12.00-20.00); Blood Urea Nitrogen 15.7 mg/dL (9.0-27.0); Calcium 9.3 mg/dL (8.7-10.3); Carbon Dioxide 21.8 mmol/L (21.6-31.8); Chloride 109 mmol/L (96-109); Glucose 77 mg/dL (70-110); Sodium 141 mmol/L (135-145)
[2023-01-17 19:29] LABS: Basophils # (A) 0.02 X 10*3/uL (0.00-0.10); Basophils % (A) 0.5 %; Eosinophils # (A) 0.04 X 10*3/uL (0.04-0.35); Eosinophils % (A) 1.1 %; Lymphocytes # (A) 1.44 X 10*3/uL (0.90-5.00); Lymphocytes % (A) 38.5 %; MCH 29.7 pg (27.0-32.0); MCHC 33.3 d/dL (32.0-37.0); Monocytes # (A) 0.24 X 10*3/uL (0.20-1.00); Monocytes % (A) 6.4 %; NRBC Per 100 WBC 0 X 10*3/uL (0.00-0.01); Neutrophils # (A) 1.99 X 10*3/uL (1.80-7.70); Neutrophils % (A) 53.2 %; Platelet Count 203 X 10*3/uL (140-440); RBC 4.72 X 10*6/uL (4.10-5.20); RDW 12.5 % (11.5-14.5); WBC 3.74 X 10*3/uL (4.50-10.00)
[2023-01-17 22:19] LABS: Appearance,Urine Cloudy (Clear); Bilirubin,Urine Negative (Negative); Blood,Urine Small (Negative); Color,Urine Yellow (Yellow); Ketones,Urine Negative (Negative); Nitrite,Urine Negative (Negative); PH, Urine 5.5; Specific Gravity,Urine 1.024 (1.001-1.030)
== END | disposition home or self-care (01) ==
LOC: LABPAT 09:25
PROVIDERS: ATTEND Urology
DX: Z01.818 Encounter for other preprocedural examination (principal); N28.89 Other specified disorders of kidney and ureter; D41.01 Neoplasm of uncertain behavior of right kidney; R31.29 Other microscopic hematuria
CPT/HCPCS: 71046; 80048; 85025; 87086

== ENCOUNTER 2023-01-25 06:19 | Day surgery (SDC) | payer OTHER ==
[~2023-01-25 06:19] MED LIST changes: -LACTATED RINGERS 1,000 ML IV SCH; -LIDOCAINE 1% (10MG/ML) FOR IV START INTRADERMA PRN
[2023-01-25] MEDS: LACTATED RINGERS 1,000 ML IV SCH (06:45)
[2023-01-25] MEDS ORDERED: LIDOCAINE 1% (10MG/ML) FOR IV START INTRADERMA ONE ×2 (06:45)
[2023-01-25] MEDS ORDERED: fentaNYL (PF) 50 MCG/ML 2 ML AMP IV ONE (07:09)
[2023-01-25] MEDS ORDERED: MIDAZOLAM 2 MG/2 ML VIAL IV ONE (07:09)
[2023-01-25] MEDS ORDERED: SODIUM CHLORIDE 0.9% (PF) 10 ML VIAL ONE (07:33)
[2023-01-25] MEDS ORDERED: ROCURONIUM 10 MG/ML (5 ML VIAL) IV ONE (07:33)
[2023-01-25] MEDS ORDERED: ROPIVACAINE 5 MG/ML 30 ML VIAL ONE (07:33)
[2023-01-25] MEDS ORDERED: NEOSTIGMINE 1 MG/ML 10 ML VIAL ONE (07:33)
[2023-01-25] MEDS ORDERED: fentaNYL (PF) 50 MCG/ML 2 ML AMP ONE (07:33)
[2023-01-25] MEDS ORDERED: MANNITOL 25% 12.5 GM/50 ML VIAL ONE (07:33)
[2023-01-25] MEDS ORDERED: KETAMINE 10 MG/ML 20 ML VIAL ONE (07:33)
[2023-01-25] MEDS ORDERED: HYDROmorphone (PF) 1 MG/ML ONE (07:33)
[2023-01-25] MEDS ORDERED: GLYCOPYRROLATE 0.2 MG/ML 2 ML VIAL ONE (07:33)
[2023-01-25] MEDS ORDERED: LIDOCAINE 2% INJ 20 MG/ML (2 ML VIAL) ONE (07:33)
[2023-01-25] MEDS ORDERED: MIDAZOLAM 2 MG/2 ML VIAL ONE (07:33)
[2023-01-25] MEDS ORDERED: KETOROLAC 30 MG/ML 1 ML VIAL ONE (07:33)
[2023-01-25] MEDS ORDERED: SUCCINYLCHOLINE CHLORIDE 200 MG/10 ML VIAL IV ONE (07:33)
[2023-01-25] MEDS ORDERED: PROPOFOL 10 MG/ML 20 ML VIAL IV ONE (07:33)
--- NOTE | 2023-01-25 07:42 | P.HPIHPCON ---
History of Present Illness H&P Date: 01/25/23 Chief Complaint: right sided renal mass this is a 37 yo female with hx of 2.9 cm right sided renal mass. Also her the option of robotic partial nephrectomy. Discussed risk which includes but not limited to bleeding, infection, injury to nearby organs. Discussed also risk of cancer recurrence. Discussed risk of converting to a radical nephrectomy. Discussed high risk of needing hemodialysis if radical nephrectomies performed. Discussed also the need a postoperative surveillance. She understood all the risk and agreed to proceed Consent for Procedure: I have explained the operation/procedure to the patient, including the risks, benefits, side effects, alternative therapies (including not receiving the proposed treatment or service), the likelihood of the patient achieving his/her goals, and potential recuperation problems for the procedure/sedation/analgesia, as well as any blood products, if indicated. I also explained to the patient the risks, benefits and side effects of the alternatives, as well as the risks related to not receiving the proposed procedure, care, treatment, or services. Past Medical History Past Medical History: Asthma, Liver Disease, Renal Disease Additional Past Medical History / Comment(s): Hepatitis C, well controlled asthma,. HAD HTN WITH LAST -RESOLVED AT THIS TIME. MIGRAINES History of Any Multi-Drug Resistant Organisms: MRSA Date of last positivie culture/infection: 2005 MDRO Source:: RT ARMPIT AND ELBOW Past Surgical History: Section Additional Past Surgical History / Comment(s): C-SEC X 2, lft ankle repair tendon,upper and lower scopes. EGD. LAPAROSCOPY Past Anesthesia/Blood Transfusion Reactions: No Reported Reaction Additional Past Anesthesia/Blood Transfusion Reaction / Comment(s): woke during laparascopic surgery. no blood tx hx Smoking Status: Former smoker, Vaper - Past Family History Mother Family Medical History: Deep Vein Thrombosis (DVT) Medications and Allergies Home Medications Medication Instructions Recorded Confirmed Type Buprenorphine HCl/Naloxone HCl 1 film SL TID 09/04/22 01/22/23 History [Suboxone 8 mg-2 mg Sl Film] Cetirizine HCl [Zyrtec] 10 mg PO HS 09/04/22 01/22/23 History Docusate [Colace] 100 mg PO BID 09/04/22 01/22/23 History Ibuprofen [Motrin] 800 mg PO Q8H PRN 09/04/22 01/22/23 History Medroxyprogesterone Acetate 150 mg IM ONCE 09/04/22 01/22/23 History [Depo-Provera] Rimegepant Sulfate [Nurtec Odt] 75 mg PO Q2D 09/04/22 01/22/23 History Topiramate [Topamax] 100 mg PO BID 09/04/22 01/22/23 History Montelukast [Singulair] 10 mg PO DAILY 01/22/23 01/22/23 History Sulfamethoxazole/Trimethoprim 1 each PO DAILY 01/22/23 01/22/23 History [Bactrim DS 800-160 mg] Allergies Allergy/AdvReac Type Severity Reaction Status Date / Time No Known Allergies Allergy Verified 01/22/23 14:10 Surgical - Exam Vital Signs Temp Pulse Resp BP Pulse Ox 97.9 F 67 16 113/56 97 01/25/23 06:45 01/25/23 06:45 01/25/23 06:45 01/25/23 06:45 01/25/23 06:45 - General no distress, no pain - Eyes normal ocular movement - Respiratory normal expansion, normal respiratory effort - Abdomen Abdomen: soft, non tender Assessment and Plan Assessment: OR for robotic right partial nephrectomy
[2023-01-25] MEDS ORDERED: BUPIVACAINE (PF) 0.25% 30 ML VIAL SQ ONE ×2 (08:28)
[2023-01-25] MEDS ORDERED: LACTATED RINGERS 1,000 ML IV ONE (09:59)
[2023-01-25] MEDS ORDERED: PATIENT'S OWN (Rimegepant Sulfate [Nurtec Odt] 75 MG Tablet) PO SCH (10:30)
[2023-01-25] MEDS ORDERED: NON FORMULARY DRUG (Medroxyprogesterone Acetate [Depo-Provera] 150 MG/ML Each) IM SCH (10:30)
[2023-01-25] MEDS ORDERED: ONDANSETRON 4 MG/2 ML VIAL IVP PRN (10:31)
--- NOTE | 2023-01-25 10:36 | P.OP ---
Date of Procedure: 01/25/23 Preoperative Diagnosis: Right renal mass Postoperative Diagnosis: same Procedure(s) Performed: Right-sided robotic partial nephrectomy with the use of intraoperative ultrasound Implants: none Anesthesia: BRIGID Surgeon: Douglas Mayfield Centrifugal Station Operator #1: Abdiel Grimes Pathology: other (Right-sided renal mass) Condition: stable Disposition: PACU Indications for Procedure: this is a 37 yo female with hx of 2.9 cm right sided renal mass. Also her the option of robotic partial nephrectomy. Discussed risk which includes but not limited to bleeding, infection, injury to nearby organs. Discussed also risk of cancer recurrence. Discussed risk of converting to a radical nephrectomy. Discussed high risk of needing hemodialysis if radical nephrectomies performed. Discussed also the need a postoperative surveillance. She understood all the risk and agreed to proceed Description of Procedure: The patient was taken to the operating room . General anesthesia was induced. She was prepped and draped in sterile fashion, and was placed in modified flank position . All pressure points were padded. The abdominal insufflation was achieved with the Veress needle. A 8 mm camera port was placed. Robotic trocars and licensed investment sales assistant ports were placed under direct vision. a 5 mm liver retractor was placed. . The robot was docked into place. The colon was mobilized medially by incising along the white line of Toldt. Next the duodenum was kocherized. Once the bowel, was mobilized. At this time the gonadal vessel was visualized. Once the gonadal vessel and ureter was visualized , next after the psoas plane was developed the ureter and gonadal vessel was retracted anteriorly off the psoas muscle. Dissection proceeded cranially towards the renal hilum.The renal vessels were dissected. The renal artery and the vein was dissected in preparation for clamping. Next attention was carried to the tumor, the area around the tumor was defatted, insuring adequate defatting to identify a normal parenchyma. Intraoperative ultrasound was used to clearly defined the tumor edges. Manitol was administered. The renal artery was clamped using 2 bulldogs. After clamping the renal artery the tumor was excised sharply with adequate margin, and cautery was used in areas of bleeding. Next the defect was closed in 2 layers using 30V lock for the inner layer, 20V lock in interrupted fashion for the outer layer. Sliding clip technique was used. Next the clamps were removed, there was no evidence of bleeding from the defect. Total clamp time was 15 minutes. Hemostatic agents were applied The kidney tumor was placed in an Endo Catch bag. A FAWAD drain was placed through the lower robotic trocor incision. The robot was then de-docked and the specimen was then removed by extending the licensed investment sales assistant port. Fascia was closed with one layer using #1 vicryl using anali plascencia Skin was closed with subcuticular sutures and dermabond. The patient was awoken from general anesthesia in stable condition. all counts were correct Please refer to the final pathology report for final diagnosis
[2023-01-25] MEDS ORDERED: droPERidol 5 MG/2 ML VIAL IVP ONE (10:53)
[2023-01-25] MEDS ORDERED: HYDROmorphone 0.5 MG/0.5 ML SYRINGE IVP ONE (13:33)
[2023-01-25] MEDS: KETOROLAC 15 MG/ML 1 ML VIAL IVP SCH ×2 (14:17→18:24)
[2023-01-25] MEDS: HYDROmorphone 1 MG/ML 1 ML SYRINGE IVP PRN ×4 (14:53→22:43)
--- NOTE | 2023-01-25 14:54 | P.ANPRN ---
Procedure Note - Anesthesia - Nerve Block Performed Bilateral Erector Spinae Single Time Out Performed: Yes ([id number]) Date of Procedure: 01/25/23 Procedure Start Time: 07:10 Procedure Stop Time: 07:16 Location of Patient: PreOp Indication: Acute Post-Operative Pain, Requested by Surgeon Specifically requested for management of pain by : Douglas Mayfield Sedation Type: Sedate with meaningful contact maintained Preparation: Sterile Prep Position: Prone Catheter: None Needle Types: Pajunk Needle Gauge: 21 Ultrasound used to visualize needle placement: Yes Ultrasound used to observe medication spread: Yes Injectate: 0.5% Ropivacaine (see comment for volume) (15cc + 15cc nacl pf each side) Blood Aspirated: No Pain Paresthesia on Injection Noted: No Resistance on Injection: Normal Image Stored and Saved: Yes Events: Uneventful and Well Tolerated
[2023-01-25] MEDS: PATIENT'S OWN (Buprenorphine Hcl/Naloxone Hcl [Suboxone 8 Mg-2 Mg Sl Film] 1 EACH Fil SUBLINGUAL SCH ×2 (15:46→21:21)
[2023-01-25] MEDS: GABAPENTIN 100 MG CAP PO SCH ×2 (15:48→21:16)
[2023-01-25] MEDS: D5-0.45% NACL WITH KCL 20MEQ/L 1,000 ML IV SCH (15:48)
[2023-01-25] MEDS: HEPARIN SODIUM,PORCINE/PF 5,000 UNIT/0.5 ML SYRINGE SQ SCH (15:49)
[2023-01-25] MEDS ORDERED: LORATADINE 10 MG TAB PO SCH (21:00)
[2023-01-25] MEDS: DOCUSATE 100 MG CAP PO SCH (21:16)
[2023-01-25] MEDS: TOPIRAMATE 100 MG TAB PO SCH (21:17)
[2023-01-26] MEDS: KETOROLAC 15 MG/ML 1 ML VIAL IVP SCH ×2 (00:17→05:47)
[2023-01-26] MEDS: HEPARIN SODIUM,PORCINE/PF 5,000 UNIT/0.5 ML SYRINGE SQ SCH ×2 (00:19→09:06)
[2023-01-26] MEDS: D5-0.45% NACL WITH KCL 20MEQ/L 1,000 ML IV SCH ×2 (00:19→08:47)
[2023-01-26] MEDS: HYDROmorphone 1 MG/ML 1 ML SYRINGE IVP PRN ×3 (01:39→07:03)
--- NOTE | 2023-01-26 03:28 | CONS ---
CONSULTATION CHIEF COMPLAINT: Right renal mass. HISTORY OF PRESENT ILLNESS: This 37-year-old female was brought in for a surgical procedure to remove part of her right kidney for a suspected mass. She has been asymptomatic. REVIEW OF SYSTEMS: She has had no chest pain, shortness of breath, abdominal pain, nausea, vomiting, urinary complaints, hematuria, diabetes, etc. PAST MEDICAL HISTORY, FAMILY HISTORY PERSONAL AND SOCIAL HISTORY, ALLERGIES: Reveal that she is not allergic to any medications. MEDICATIONS: She is on, 1. Linzess 145 mcg once a day. 2. Singulair 10 mg once a day. 3. Pepcid 40 mg once a day. 4. Omeprazole 40 mg once a today. 5. Nurtec 75 mg. 6. Depo-Provera. 7. Lomotil. 8. Topamax. 9. Motrin. 10.Symbicort. 11.Suboxone. Rest of her history is unremarkable. She has used and abused multiple drugs in the past. She is not a smoker. PHYSICAL EXAMINATION: VITAL SIGNS: Blood pressure is 108/66 with a pulse 78, respirations of 18, and she is afebrile. GENERAL: She appeared to be slightly overweight, in no acute distress. SKIN: Color is normal. Skin is warm and dry. LYMPH NODES: Not enlarged. HEENT: Head, ears, eyes, nose, mouth and throat were normal. NECK: Veins are not distended. Thyroid is not enlarged. CHEST: Clear. CARDIAC: Normal. ABDOMEN: Soft and nontender. EXTREMITIES: Normal. NEUROLOGIC: She is intact. IMPRESSION: 1. Mass in the right kidney. 2. History of substance abuse. RECOMMENDATIONS: None. Thank you respectfully, MMODL / IJN: [id number] /
[2023-01-26 05:17] LABS: HCT 39.3 % (34.0-46.0); HGB 13.1 gm/dL (11.4-16.0); MCH 30.3 pg (25.0-35.0); MCHC 33.5 g/dL (31.0-37.0); MCV 90.5 fL (80.0-100.0); Mean Platelet Volume 8.9; Platelet Count 157 k/uL (150-450); RBC 4.34 m/uL (3.80-5.40); RDW 12.9 % (11.5-15.5); WBC 4.8 k/uL (3.8-10.6)
[2023-01-26 05:20] LABS: African American GFR (CKD) >90 (>60 ml/min/1.73 sqM); Anion Gap 7 mmol/L; Blood Urea Nitrogen 14 mg/dL (7-17); Calcium 8.1 mg/dL (8.4-10.2); Carbon Dioxide 20 mmol/L (22-30); Chloride 108 mmol/L (98-107); Glucose 103 mg/dL (74-99); Non-African American GFR(CKD) 86 (>60 ml/min/1.73 sqM); Sodium 135 mmol/L (137-145)
[2023-01-26 07:53] VITALS: BP 102/66; PULSE 63; RESP 16; TEMP 98.8
--- NOTE | 2023-01-26 08:09 | P.DS ---
Providers Expected date of discharge: 01/26/23 Attending physician: Douglas Mayfield MD Primary care physician: Noé Matoshven Hospital Course: On the day of admission, the patient underwent an uncomplicated robotic-assisted right partial nephrectomy with ultrasound guidance. The perioperative course was unremarkable. Patient remained afebrile with stable vital signs. She had minimal drainage from her FAWAD drain. On the first postoperative day, she reported incisional discomfort but was otherwise feeling fine. She tolerated diet and denied nausea and vomiting. The Davey catheter was draining clear yellow urine. The abdomen was soft and nondistended. Incisions were clean, dry, and intact. Procedures: Robotic-assisted laparoscopic right partial nephrectomy on 01/25/2023. Patient Condition at Discharge: Stable Plan - Discharge Summary Discharge Rx Participant: No New Discharge Prescriptions: New Gabapentin 600 mg PO TID 3 Days #9 tab No Action Topiramate [Topamax] 100 mg PO BID Ibuprofen [Motrin] 800 mg PO Q8H PRN PRN Reason: Pain Docusate [Colace] 100 mg PO BID Medroxyprogesterone Acetate [Depo-Provera] 150 mg IM ONCE Montelukast [Singulair] 10 mg PO DAILY Sulfamethoxazole/Trimethoprim [Bactrim DS 800-160 mg] 1 each PO DAILY Cetirizine HCl [Zyrtec] 10 mg PO HS Buprenorphine HCl/Naloxone HCl [Suboxone 8 mg-2 mg Sl Film] 1 film SL TID Rimegepant Sulfate [Nurtec Odt] 75 mg PO Q2D Discharge Medication List Buprenorphine HCl/Naloxone HCl [Suboxone 8 mg-2 mg Sl Film] 1 film SL TID 09/04/22 [History] Cetirizine HCl [Zyrtec] 10 mg PO HS 09/04/22 [History] Docusate [Colace] 100 mg PO BID 09/04/22 [History] Ibuprofen [Motrin] 800 mg PO Q8H PRN 09/04/22 [History] Medroxyprogesterone Acetate [Depo-Provera] 150 mg IM ONCE 09/04/22 [History] Rimegepant Sulfate [Nurtec Odt] 75 mg PO Q2D 09/04/22 [History] Topiramate [Topamax] 100 mg PO BID 09/04/22 [History] Montelukast [Singulair] 10 mg PO DAILY 01/22/23 [History] Sulfamethoxazole/Trimethoprim [Bactrim DS 800-160 mg] 1 each PO DAILY 01/22/23 [History] Gabapentin 600 mg PO TID 3 Days #9 tab 01/26/23 [Rx] Follow up Appointment(s)/Referral(s): Douglas Mayfield MD [STAFF PHYSICIAN] - 1 Week Activity/Diet/Wound Care/Special Instructions: Diet as tolerated. Drink plenty of fluids. Avoid lifting, straining, and strenuous activity. May shower on 01/27/2023. Discharge Disposition: HOME SELF-CARE
[2023-01-26] MEDS: PATIENT'S OWN (Buprenorphine Hcl/Naloxone Hcl [Suboxone 8 Mg-2 Mg Sl Film] 1 EACH Fil SUBLINGUAL SCH (08:29)
[2023-01-26] MEDS ORDERED: MONTELUKAST 10 MG TAB PO SCH (09:00)
[2023-01-26] MEDS ORDERED: SULFAMETHOX-TMP 800-160MG 1 EACH TAB PO SCH (09:00)
[2023-01-26] MEDS ORDERED: GABAPENTIN 300 MG CAP PO SCH (09:00)
[2023-01-26] MEDS: DOCUSATE 100 MG CAP PO SCH (09:06)
[2023-01-26] MEDS: TOPIRAMATE 100 MG TAB PO SCH (09:06)
[2023-01-27] MEDS ORDERED: PATIENT'S OWN (Rimegepant Sulfate [Nurtec Odt] 75 MG Tablet) PO SCH (09:00)
== END 2023-01-26 11:34 | disposition home or self-care (01) ==
LOC: OR 06:19 → 4SSUR 10:37 → OR 01-26 11:34
PROVIDERS: ATTEND Urology
DX: C64.1 Malignant neoplasm of right kidney, except renal pelvis (principal); G89.18 Other acute postprocedural pain; J45.909 Unspecified asthma, uncomplicated; I10 Essential (primary) hypertension; F41.9 Anxiety disorder, unspecified; K21.9 Gastro-esophageal reflux disease without esophagitis; Z90.5 Acquired absence of kidney; Z98.891 History of uterine scar from previous surgery; Z86.718 Personal history of other venous thrombosis and embolism; Z87.891 Personal history of nicotine dependence
CPT/HCPCS: 81025; 64999; 86900; 86901; 80048; 85027; 86850; 88307; 50543; C1762; J2250; J0330; J1100; J2710; J0690; J2405; J2150; J3010; J1885 ×3; J1170 ×3; J2795; J2704; J1790; J1644 ×2; J2001

== ENCOUNTER 2023-07-05 11:39 | Emergency (ER) | payer OTHER ==
[2023-07-05 11:55] VITALS: BP 122/81; PULSE 71; RESP 20; TEMP 98.1
[2023-07-05] MEDS ORDERED: SODIUM CHLORIDE 0.9% 1,000 ML IV STA (12:24)
[2023-07-05] MEDS ORDERED: MORPHINE SULFATE 2 MG/ML SYRINGE IVP STA ×2 (12:24→14:50)
[2023-07-05] MEDS ORDERED: ONDANSETRON 4 MG/2 ML VIAL IVP STA (12:24)
--- NOTE | 2023-07-05 12:28 | ED ---
Female Urogenital HPI - General Chief complaint: Urogenital Stated complaint: UTI Time Seen by Provider: 07/05/23 12:09 Source: patient, RN notes reviewed Mode of arrival: ambulatory Limitations: no limitations - History of Present Illness Initial comments: Patient is a 37-year-old female presented ER with chief complaint of UTI and back pain. Patient states she has been treated with Augmentin for recurrent UTIs twice before presenting to the ER. Patient states her pain now started in her lower back and is traveling up. Patient does have a history of kidney stones. Patient does report a surgery to remove cancer from her right kidney. Patient states she is in extreme pain and has just been getting worse. Patient states she did feel feverish a few days ago. She denies any current nausea, fevers, chills, night sweats, chest pain, shortness of breath. - Related Data Home Medications Medication Instructions Recorded Confirmed Buprenorphine HCl/Naloxone HCl 1 film SL TID 09/04/22 01/22/23 [Suboxone 8 mg-2 mg Sl Film] Cetirizine HCl [Zyrtec] 10 mg PO HS 09/04/22 01/22/23 Docusate [Colace] 100 mg PO BID 09/04/22 01/22/23 Ibuprofen [Motrin] 800 mg PO Q8H PRN 09/04/22 01/22/23 Medroxyprogesterone Acetate 150 mg IM ONCE 09/04/22 01/22/23 [Depo-Provera] Rimegepant Sulfate [Nurtec Odt] 75 mg PO Q2D 09/04/22 01/22/23 Topiramate [Topamax] 100 mg PO BID 09/04/22 01/22/23 Montelukast [Singulair] 10 mg PO DAILY 01/22/23 01/22/23 Sulfamethoxazole/Trimethoprim 1 each PO DAILY 01/22/23 01/22/23 [Bactrim DS 800-160 mg] Previous Rx's Medication Instructions Recorded Gabapentin 600 mg PO TID 3 Days #9 tab 01/26/23 Fluconazole 150 mg PO ONCE #1 tab 07/05/23 Nitrofurantoin Monohyd/M-Cryst 100 mg PO Q12HR #14 cap 07/05/23 [Macrobid] Allergies Allergy/AdvReac Type Severity Reaction Status Date / Time No Known Allergies Allergy Verified 07/05/23 11:43 Review of Systems ROS Statement: Those systems with pertinent positive or pertinent negative responses have been documented in the HPI. ROS Other: All systems not noted in ROS Statement are negative. Past Medical History Past Medical History: Cancer, Renal Disease Additional Past Medical History / Comment(s): Hepatitis C. HAD HTN WITH LAST -RESOLVED AT THIS TIME. MIGRAINES History of Any Multi-Drug Resistant Organisms: MRSA Date of last positivie culture/infection: 2005 MDRO Source:: RT ARMPIT AND ELBOW Past Surgical History: Section Additional Past Surgical History / Comment(s): C-SEC X 2, lft ankle repair tendon,upper and lower scopes. Laprascopy for endometriosis. Right partial nephrectomy. Past Anesthesia/Blood Transfusion Reactions: No Reported Reaction Past Psychological History: ADD/ADHD, Anxiety, Bipolar, Depression, PTSD Smoking Status: Former smoker Past Alcohol Use History: Occasional Past Drug Use History: None Reported, Marijuana, Methamphetamine, Opiates - Past Family History Mother Family Medical History: Deep Vein Thrombosis (DVT) General Exam Limitations: no limitations General appearance: alert, in no apparent distress Respiratory exam: Present: normal lung sounds bilaterally. Absent: respiratory distress, wheezes, rales, rhonchi, stridor Cardiovascular Exam: Present: regular rate, normal rhythm, normal heart sounds. Absent: systolic murmur, diastolic murmur, rubs, gallop, clicks GI/Abdominal exam: Present: soft, tenderness (suprapubic) Back exam: Present: CVA tenderness (R), CVA tenderness (L) Neurological exam: Present: alert, oriented X3, CN II-XII intact Psychiatric exam: Present: normal affect, normal mood Skin exam: Present: warm, dry, intact, normal color. Absent: rash Course Vital Signs 07/05/23 11:41 Temperature 98.1 F Pulse Rate 71 Respiratory 20 Rate Blood Pressure 122/81 O2 Sat by Pulse 99 Oximetry Medical Decision Making - Medical Decision Making Was pt. sent in by a medical professional or institution (, PA, BOX FABRICATOR, urgent care, hospital, or long-term...) When possible be specific @ -No Did you speak to anyone other than the patient for history (EMS, parent, family, police, friend...)? What history was obtained from this source @ -No Did you review nursing and triage notes (agree or disagree)? Why? @ -I reviewed and agree with nursing and triage notes Were old charts reviewed (outside hosp., previous admission, EMS record, old EKG, old radiological studies, urgent care reports/EKG's, long-term records)? Report findings @ -Yes, I reviewed urine culture on the patient's phone from 06/27/2023. Differential Diagnosis (chest pain, altered mental status, abdominal pain women, abdominal pain men, vaginal bleeding, weakness, fever, dyspnea, syncope, headache, dizziness, GI bleed, back pain, seizure, CVA, palpatations, mental health, musculoskeletal)? @ -Differential Abdominal Pain Women: Appendicitis, Cholecystitis, diverticulosis, ischemic bowel, pancreatitis, hepatitis, UTI, gastroenteritis, AAA, incarcerated hernia, bowel obstruction, constipation, inflammatory bowel, hepatitis, peptic ulcer disease, splenic infarction, perforated viscus, vulvitis, ovarian torsion, PID, kidney stone, placenta abruption, this is not meant to be an all-inclusive list EKG interpreted by me (3pts min.). @ -None X-rays interpreted by me (1pt min.). @ -None done CT interpreted by me (1pt min.). @ -CT abdomen and pelvis shows no evidence of obstructive nephropathy, nephrolithiasis, hydronephrosis, or renal masses. There is postoperative changes noted to the right kidney. U/S interpreted by me (1pt. min.). @ -None done What testing was considered but not performed or refused? (CT, X-rays, U/S, la bs)? Why? @ -None What meds were considered but not given or refused? Why? @ -None Did you discuss the management of the patient with other professionals (professionals i.e. , PA, BOX FABRICATOR, lab, RT, psych nurse, hospital social worker, shaping machine tender, teacher, air antisubmarine officer, telephonic nurse case manager)? Give summary @ -No Was smoking cessation discussed for >3mins.? @ -No Was critical care preformed (if so, how long)? @ -No Were there social determinants of health that impacted care today? How? (Homelessness, low income, unemployed, alcoholism, drug addiction, transportation, low edu. Level, literacy, decrease access to med. care, prison, rehab)? @ -No Was there de-escalation of care discussed even if they declined (Discuss DNR or withdrawal of care, Hospice)? DNR status @ -No What co-morbidities impacted this encounter? (DM, HTN, Smoking, COPD, CAD, Cancer, CVA, ARF, Chemo, Hep., AIDS, mental health diagnosis, sleep apnea, morbid obesity)? @ -None Was patient admitted / discharged? Hospital course, mention meds given and route, prescriptions, significant lab abnormalities, going to OR and other pertinent info. @ -Discharge. Upon examination patient's vitals are stable. Patient had bilateral CVA tenderness and generalized abdominal tenderness. Patient received 4 g of IV morphine, IV Zofran, IV Reglan and 1 L of IV fluids in the ER for symptom control. Labs obtained were unremarkable. Urinalysis showed moderate leukocyte esterases and rare bacteria. I reviewed urine culture results from 06/27/23 off of the patient's phone. Patient will receive 1 g of IM Rocephin before discharge. Patient was discharged home with a prescription for Macrobid. Patient also reported a yeast infection and will be prescribed fluconazole. I discussed with the patient that once we received her urine culture from today we will contact her if antibiotic changes need to be made. Patient will be di scharged home in stable condition with follow-up to PCP. Patient expressed understanding and agreement with care plan. Undiagnosed new problem with uncertain prognosis? @ -No Drug Therapy requiring intensive monitoring for toxicity (Heparin, Nitro, Insulin, Cardizem)? @ -No Were any procedures done? @ -No Diagnosis/symptom? @ -Urinary tract infection Acute, or Chronic, or Acute on Chronic? @ -Acute on chronic Uncomplicated (without systemic symptoms) or Complicated (systemic symptoms)? @ -Uncomplicated Side effects of treatment? @ -No Exacerbation, Progression, or Severe Exacerbation? @ -No Poses a threat to life or bodily function? How? (Chest pain, [place], [place], pneumonia, PE, COPD, DKA, ARF, appy, cholecystitis, CVA, Diverticulitis, Homicidal, Suicidal, threat to staff... and all critical care pts) @ -No - Lab Data Result diagrams: 07/05/23 13:06 07/05/23 13:06 Lab Results 07/05/23 07/05/23 07/05/23 Range/Units 13:06 13:06 13:06 WBC 3.4 L (3.8-10.6) k/uL RBC 5.08 (3.80-5.40) m/uL Hgb 15.1 (11.4-16.0) gm/dL Hct 43.6 (34.0-46.0) % MCV 85.9 (80.0-100.0) fL MCH 29.7 (25.0-35.0) pg MCHC 34.5 (31.0-37.0) g/dL RDW 13.1 (11.5-15.5) % Plt Count 177 (150-450) k/uL MPV 8.6 Sodium 138 (137-145) mmol/L Potassium 3.7 (3.5-5.1) mmol/L Chloride 105 (98-107) mmol/L Carbon Dioxide 22 (22-30) mmol/L Anion Gap 11 mmol/L BUN 13 (7-17) mg/dL Creatinine 0.66 (0.52-1.04) mg/dL Est GFR (CKD-EPI)AfAm >90 (>60 ml/min/1.73 sqM) Est GFR (CKD-EPI)NonAf >90 (>60 ml/min/1.73 sqM) Glucose 83 (74-99) mg/dL Plasma Lactic Acid Juan 0.8 (0.7-2.0) mmol/L Calcium 9.6 (8.4-10.2) mg/dL Total Bilirubin 1.0 (0.2-1.3) mg/dL AST 21 (14-36) U/L ALT 18 (4-34) U/L Alkaline Phosphatase 52 (38-126) U/L Total Protein 7.3 (6.3-8.2) g/dL Albumin 4.6 (3.5-5.0) g/dL Urine Color Urine Appearance (Clear) Urine pH (5.0-8.0) Ur Specific Gila (1.001-1.035) Urine Protein (Negative) Urine Glucose (UA) (Negative) Urine Ketones (Negative) Urine Blood (Negative) Urine Nitrite (Negative) Urine Bilirubin (Negative) Urine Urobilinogen (<2.0) mg/dL Ur Leukocyte Esterase (Negative) Urine RBC (0-5) /hpf Urine WBC (0-5) /hpf Ur Squamous Epith Cells (0-4) /hpf Calcium Oxalate Crystal (None) /hpf Urine Bacteria (None) /hpf Urine Mucus (None) /hpf Urine HCG, Qual (Not Detectd) 07/05/23 07/05/23 Range/Units 13:06 13:06 WBC (3.8-10.6) k/uL RBC (3.80-5.40) m/uL Hgb (11.4-16.0) gm/dL Hct (34.0-46.0) % MCV (80.0-100.0) fL MCH (25.0-35.0) pg MCHC (31.0-37.0) g/dL RDW (11.5-15.5) % Plt Count (150-450) k/uL MPV Sodium (137-145) mmol/L Potassium (3.5-5.1) mmol/L Chloride (98-107) mmol/L Carbon Dioxide (22-30) mmol/L Anion Gap mmol/L BUN (7-17) mg/dL Creatinine (0.52-1.04) mg/dL Est GFR (CKD-EPI)AfAm (>60 ml/min/1.73 sqM) Est GFR (CKD-EPI)NonAf (>60 ml/min/1.73 sqM) Glucose (74-99) mg/dL Plasma Lactic Acid Juan (0.7-2.0) mmol/L Calcium (8.4-10.2) mg/dL Total Bilirubin (0.2-1.3) mg/dL AST (14-36) U/L ALT (4-34) U/L Alkaline Phosphatase (38-126) U/L Total Protein (6.3-8.2) g/dL Albumin (3.5-5.0) g/dL Urine Color Dark Yellow Urine Appearance Cloudy H (Clear) Urine pH 5.5 (5.0-8.0) Ur Specific Gila 1.024 (1.001-1.035) Urine Protein Trace H (Negative) Urine Glucose (UA) Negative (Negative) Urine Ketones Negative (Negative) Urine Blood Negative (Negative) Urine Nitrite Negative (Negative) Urine Bilirubin Negative (Negative) Urine Urobilinogen <2.0 (<2.0) mg/dL Ur Leukocyte Esterase Large H (Negative) Urine RBC 4 (0-5) /hpf Urine WBC 5 (0-5) /hpf Ur Squamous Epith Cells 10 H (0-4) /hpf Calcium Oxalate Crystal Rare H (None) /hpf Urine Bacteria Rare H (None) /hpf Urine Mucus Moderate H (None) /hpf Urine HCG, Qual Not Detected (Not Detectd) - Radiology Data Radiology results: report reviewed, image reviewed Disposition Clinical Impression: Urinary tract infection, Candidiasis of vagina Disposition: HOME SELF-CARE Condition: Stable Additional Instructions: Please return to the Emergency Department if symptoms worsen or any other concerns. We will contact you if antibiotic changes need to be made based on today's urine culture. Prescriptions: Fluconazole 150 mg PO ONCE #1 tab Nitrofurantoin Monohyd/M-Cryst [Macrobid] 100 mg PO Q12HR #14 cap Is patient prescribed a controlled substance at d/c from ED?: No Referrals: Noé Moon MD [Primary Care Provider] - 1-2 days Time of Disposition: 15:21
[2023-07-05 13:26] LABS: HCT 43.6 % (34.0-46.0); HGB 15.1 gm/dL (11.4-16.0); MCH 29.7 pg (25.0-35.0); MCHC 34.5 g/dL (31.0-37.0); MCV 85.9 fL (80.0-100.0); Mean Platelet Volume 8.6; Platelet Count 177 k/uL (150-450); RBC 5.08 m/uL (3.80-5.40); RDW 13.1 % (11.5-15.5); WBC 3.4 k/uL (3.8-10.6)
[2023-07-05 13:29] LABS: Appearance,Urine Cloudy (Clear); Bacteria,Urine Rare /hpf; Bilirubin,Urine Negative (Negative); Blood,Urine Negative (Negative); Calcium Oxalate Crystals,Urine Rare /hpf; Color,Urine Dark Yellow; Glucose,Urine (UA) Negative (Negative); Ketones,Urine Negative (Negative); Leukocyte Esterase,Urine Large (Negative); Mucus,Urine Moderate /hpf; Nitrite,Urine Negative (Negative); PH, Urine 5.5 (5.0-8.0); Protein,Urine Trace (Negative); RBC,Urine 4 /hpf (0-5); Specific Gravity,Urine 1.024 (1.001-1.035); Squamous Epithelial Cell,Urine 10 /hpf (0-4); Urobilinogen,Urine <2.0 mg/dL (<2.0); WBC,Urine 5 /hpf (0-5)
[2023-07-05 14:00] LABS: ALT 18 U/L (4-34); AST 21 U/L (14-36); African American GFR (CKD) >90 (>60 ml/min/1.73 sqM); Albumin 4.6 g/dL (3.5-5.0); Alkaline Phosphatase 52 U/L (38-126); Anion Gap 11 mmol/L; Blood Urea Nitrogen 13 mg/dL (7-17); Calcium 9.6 mg/dL (8.4-10.2); Carbon Dioxide 22 mmol/L (22-30); Chloride 105 mmol/L (98-107); Glucose 83 mg/dL (74-99); Non-African American GFR(CKD) >90 (>60 ml/min/1.73 sqM); Potassium 3.7 mmol/L (3.5-5.1); Sodium 138 mmol/L (137-145); Total Protein 7.3 g/dL (6.3-8.2)
--- NOTE | 2023-07-05 14:30 | CT ---
Indication Associated atelectasis or EXAMINATION TYPE: CT abdomen pelvis wo con DATE OF EXAM: 07/05/2023 COMPARISON: none HISTORY: UTI, history of kidney CA CT DLP: 1111.4 mGycm Examination of the solid and hollow viscera is limited given the lack of contrast. FINDINGS: LUNG BASES: No evidence for nodule. No evidence for infiltrate. LIVER/GB: The gallbladder is unremarkable. No space-occupying hepatic lesion. PANCREAS: No pancreatic mass identified. No inflammatory process seen. SPLEEN: No evidence for splenomegaly. No intrasplenic lesions seen. ADRENALS: No adrenal nodules identified. No evidence for thickening. KIDNEYS: Postoperative changes upper pole right kidney No evidence for renal mass. No nephrolithiasis . No hydronephrosis. BOWEL: Appendix has a normal appearance. No evidence of bowel obstruction. No inflammatory process. Lymph nodes: No evidence for adenopathy greater than 1 cm. Abdominal aorta: Atheromatous changes seen. No evidence for aneurysm. Genital organs: No significant abnormality. Other: No significant abnormality. IMPRESSION: NO EVIDENCE FOR OBSTRUCTIVE UROPATHY, NEPHROLITHIASIS OR RENAL MASS. POSTOPERATIVE CHANGES RIGHT TITO JAIN.
[2023-07-05] MEDS ORDERED: METOCLOPRAMIDE 5 MG/ML 2 ML VIAL IVP STA (14:50)
[2023-07-05] MEDS ORDERED: cefTRIAXone 1,000 MG VIAL (IM USE) IM STA (15:18)
== END 2023-07-05 16:00 | disposition home or self-care (01) ==
LOC: EC 11:39
DX: N39.0 Urinary tract infection, site not specified (principal); B37.31 Acute candidiasis of vulva and vagina; Z87.891 Personal history of nicotine dependence; F12.90 Cannabis use, unspecified, uncomplicated; Z86.59 Personal history of other mental and behavioral disorders
CPT/HCPCS: 99284; 96374; 96375 ×2; 96376; 96372; 36415; 80053; 83605; 85027; 81001; 81025; 74176; J2765; J2405; J0696; J2270

== ENCOUNTER → 2023-09-19 | Outpatient (CLI) | payer OTHER ==
--- NOTE | 2023-09-19 08:32 | XR ---
EXAMINATION TYPE: XR chest 2V DATE OF EXAM: 09/19/2023 COMPARISON: 01/17/2023 TECHNIQUE: PA and lateral views submitted. HISTORY: Renal cancer FINDINGS: The lungs are clear and there is no pneumothorax, pleural effusion, or focal pneumonia. Heart size normal and no overt failure. Osseous structures demonstrate hypertrophic and degenerative changes of the spine. Hyperexpansion compatible with COPD. IMPRESSION: 1. No acute process.
[2023-09-19 09:05] LABS: African American GFR (CKD) >90 (>60 ml/min/1.73 sqM); Blood Urea Nitrogen 15 mg/dL (7-17); Non-African American GFR(CKD) >90 (>60 ml/min/1.73 sqM)
--- NOTE | 2023-09-19 09:51 | CT ---
EXAMINATION TYPE: CT abdomen wo/w con DATE OF EXAM: 09/19/2023 COMPARISON: 07/05/2023 HISTORY: malignant neoplasm of right kidney CT DLP: 1503 mGycm Automated exposure control for dose reduction was used. TECHNIQUE: Helical acquisition of images was performed from the lung bases through the top of iliac crest to include entire abdomen. CONTRAST: Performed with Oral Contrast and with IV Contrast, patient injected with 100 mL of Isovue 300. FINDINGS: LUNG BASES: No significant abnormality is appreciated. LIVER/GB: No significant abnormality is appreciated. PANCREAS: No significant abnormality is seen. SPLEEN: No significant abnormality is seen. ADRENALS: No significant abnormality is seen. KIDNEYS: Postoperative changes right kidney are redemonstrated. No evidence for nephrolithiasis or hy dronephrosis. No solid or cystic renal masses are detected. No evidence for recurrent disease. BOWEL: No significant abnormality is seen. LYMPH NODES: No significant abnormality is seen. OSSEOUS STRUCTURES: No significant abnormality is seen. FREE AIR: No free air is visualized. OTHER: None IMPRESSION: No solid or cystic renal masses are detected. No evidence for recurrent disease.
== END | disposition home or self-care (01) ==
LOC: RADCTMAIN 08:07
PROVIDERS: ATTEND Urology
DX: C64.1 Malignant neoplasm of right kidney, except renal pelvis (principal)
CPT/HCPCS: 82565; 84520; 71046; 74170; 36415; Q9967

== ENCOUNTER → 2024-03-04 | Outpatient (CLI) | payer OTHER ==
--- NOTE | 2024-03-04 08:23 | MM ---
Reason for Exam: Confirmation of palpable mass. Patient History: Menarche at age 12. First Full-Term at age 24. Paternal grandmother had breast cancer. Risk Values: Staci 5 year model risk: 0.4%. NCI Lifetime model risk: 9.1%. Tissue Density: The breasts are heterogeneously dense, which may obscure small masses. Findings: Analyzed By CAD. No evidence for mass or distortion within either breast or at the site of clinical concern left breast. No suspicious mitral calcifications evident. Overall Assessment: Incomplete: need additional imaging evaluation, BI-RAD 0 Management: Diagnostic Breast Ultrasound of the left breast. . Results were given to the patient verbally at the time of exam. Patient should continue monthly self-breast exams. A clinical breast exam by your physician is recommended on an annual basis. This exam should not preclude additional follow-up of suspicious palpable abnormalities. Note on Staci scores and lifetime risk: 1. A Staci score greater than 3% is considered moderate risk. If this is the case, consider specialist referral to assess eligibility for a risk reducing agent. 2. If overall lifetime risk for the development of breast cancer is 20% or higher, the patient may qualify for future screening with alternating mammogram and breast MRI. Electronically signed and approved by: Jb Mendoza M.D. Radiologis
--- NOTE | 2024-03-04 08:58 | USB ---
Reason for Exam: Clinical finding. Patient History: Menarche at age 12. First Full-Term at age 24. Paternal grandmother had breast cancer. Risk Values: Staci 5 year model risk: 0.4%. NCI Lifetime model risk: 9.1%. Technique: Method: Targeted. Findings: The area of palpable concern of the left breast, the axilla of the left breast and the retroareolar of the left breast were scanned. No solid or cystic masses are identified. Manage clinically. Overall Assessment: Negative, BI-RAD 1 Management: Screening Mammogram of both breasts at age 40. A clinical breast exam by your physician is recommended on an annual basis and results should be correlated with mammographic findings. This exam should not preclude additional follow-up of suspicious palpable abnormalities. Results were given to the patient verbally at the time of exam. Electronically signed and approved by: Jb Mendoza M.D. Radiologis
== END | disposition home or self-care (01) ==
LOC: RADMAMWWP 07:52
PROVIDERS: ATTEND Family Medicine
DX: R92.333 Mammographic heterogeneous density, bilateral breasts (principal); N63.20 Unspecified lump in the left breast, unspecified quadrant; R23.9 Unspecified skin changes; Z80.3 Family history of malignant neoplasm of breast
CPT/HCPCS: 77066; 76642; G0279; 77062

== ENCOUNTER → 2024-07-15 | Outpatient (CLI) | payer OTHER ==
[2024-07-15 08:35] LABS: African American GFR (CKD) >90 (>60 ml/min/1.73 sqM); Blood Urea Nitrogen 16 mg/dL (7-17); Non-African American GFR(CKD) >90 (>60 ml/min/1.73 sqM)
--- NOTE | 2024-07-15 10:49 | CT ---
EXAMINATION TYPE: CT abdomen pelvis wo/w con CT DLP: 1204.80 mGycm, Automated exposure control for dose reduction was used. DATE OF EXAM: 07/15/2024 10:29 AM COMPARISON: CT abdomen 09/19/2023, CT abdomen and pelvis 07/05/2023 CLINICAL INDICATION:Female, 38 years old with history of C64.1 MALIGNANT NEOPLASM OF RIGHT KIDNEY; hx of rt kidney cancer TECHNIQUE: Standard CT of the abdomen and pelvis before and after the uneventful administration of 100 cc of Isovue-370 intravenously. Oral contrast was administered. Coronal and sagittal reformats we re performed. FINDINGS: LOWER CHEST: Unremarkable ABDOMEN LIVER: Focal fatty infiltration adjacent to the falciform ligament in segment IVb GALLBLADDER AND BILE DUCTS: Unremarkable. PANCREAS: Unremarkable. SPLEEN: Unremarkable. ADRENAL GLANDS: Unremarkable. KIDNEYS AND URETERS: No evidence of hydronephrosis or renal calculus. The kidneys enhance symmetrica lly. Postsurgical changes from partial right nephrectomy involving the superior pole. No abnormal sof t tissue enhancement to suggest recurrence. Contrast is demonstrated within both collecting systems o n the delayed phase. PELVIS BLADDER: Unremarkable REPRODUCTIVE: Unremarkable. ABDOMEN & PELVIS STOMACH AND BOWEL: Stomach and duodenum are unremarkable. Enteric contrast reaches the cecum. No foca l bowel wall thickening or surrounding inflammatory changes. Mild to moderate amount of stool is pres ent throughout the colon. No evidence of bowel obstruction. PERITONEUM: No evidence of pneumoperitoneum or free fluid. VASCULATURE: No evidence of aortic aneurysm. MUSCULOSKELETAL: No acute osseous abnormalities. No aggressive osseous lesion. Degenerative disc dise ase of the lower thoracic spine. LYMPH NODES: No evidence for lymphadenopathy. SOFT TISSUE/ABDOMINAL WALL: A couple of hyperdense foci stranding within the anterior abdominal wall subcutaneous tissues likely related to medication injection. IMPRESSION: Postoperative changes of the right kidney without evidence for recurrence or metastasis within the ab domen or pelvis. [facility], , 07/15/2024 10:46 AM
== END | disposition home or self-care (01) ==
LOC: RADCTMAIN 07:42
PROVIDERS: ATTEND Urology
DX: C64.1 Malignant neoplasm of right kidney, except renal pelvis (principal)
CPT/HCPCS: 82565; 84520; 74178; 36415; Q9967

== ENCOUNTER → 2024-07-15 | Outpatient (CLI) | payer OTHER ==
--- NOTE | 2024-07-15 12:07 | CT ---
EXAMINATION TYPE: CT sinus wo con DATE OF EXAM: 07/15/2024 9:53 AM COMPARISON: CT abdomen pelvis most recent from CLINICAL INDICATION: Female, 38 years old with history of J32.9 CHRONIC SINUSITIS, UNSPECIFIED, chron ic sinusitis, TECHNIQUE: Noncontrast axial views of the paranasal sinuses were obtained. Coronal and sagittal refor matted images were obtained from the axial views for evaluation of nasal cavity, osteomeatal complex and skull base integrity. CT DLP: 673.70 mGycm, Automated exposure control for dose reduction was used. FINDINGS: PARANASAL SINUSES: There is trace mucosal thickening left maxillary sinus. Sphenoid, frontal, and ethmoid sinuses are well pneumatized. There is no air-fluid level. Reactive gagan- osteogenesis is not seen. There is no destruction of the osseous narvaez of the paranasal sinuses. THE NASAL CAVITY: The osteomeatal complexes are patent. There is leftward nasal septal deviation. The imaged brain and orbits are normal in appearance. Mastoid air cells and middle ear cavities are well pneumatized. Reformatted images confirm above findings. IMPRESSION: 1. Trace mucosal thickening left maxillary sinus. 2. Leftward nasal septal deviation. [facility], , 07/15/2024 12:04 PM
== END | disposition home or self-care (01) ==
LOC: RADCTMAIN 07:38
PROVIDERS: ATTEND Otolaryngology
DX: J32.9 Chronic sinusitis, unspecified (principal); J34.89 Other specified disorders of nose and nasal sinuses; J34.2 Deviated nasal septum
CPT/HCPCS: 70486

== ENCOUNTER → 2025-01-29 | Outpatient (CLI) | payer OTHER ==
[2025-01-29 13:38] VITALS: BP 135/86; PULSE 66; RESP 16; TEMP 97.7
--- NOTE | 2025-01-29 14:16 | P.SLEEP ---
History of Present Illness DATE: 01/29/2025 CONSULTATION/NEW PATIENT EVALUATION HISTORY OF PRESENT ILLNESS/SLEEP-WAKE EVALUATION: 39-year-old lady had been e valuated in the sleep center for significant excessive daytime sleepiness. SLEEP SCHEDULE: Usually sleep schedule from 6[address]88 PM until 56 AM 7 days a week. FALLING ASLEEP: Usually no problems with falling asleep at the beginning of the night. DURING SLEEP: Patient has multiple awakenings from sleep increase difficulties to fall asleep after awakenings. No history of snoring. Significant amount of movements arms and legs during the night. Positive history of sleep talking and grinding teeth no history of hypnogogical hallucinations, sleep paralysis, or cataplexy. DURING THE DAY/WAKE STATE: Patient has difficulties to wake up in the morning after sleep. Positive history of tiredness and sleepiness during the day, problems with memory, concentration, irritability, depression, anxiety.. [place] sleepiness scale is in a very high range of 16. Patient may fall asleep several times during the day. PAST MEDICAL HISTORY: ADHD, migraines sometimes after awakenings from sleep, acid reflux, right kidney cancer, UTI. PAST SURGICAL HISTORY: Right kidney resection for cancer. MEDICATIONS: Please see below. SOCIAL HISTORY: Please see below. FAMILY HISTORY: Please see below. REVIEW OF SYSTEMS: Multiple awakenings from sleep, significant excessive daytime sleepiness. No fevers. No double vision. No recent chest pain. No shortness of breath. No abdominal pain. No bleeding episodes. No blood in urine. No seizure episodes. PHYSICAL EXAMINATION: GENERAL: A pleasant patient without any distress. VITAL SIGNS: Please see below weight 144 pounds, BMI 25.5. HEENT: PERRLA, EOMI. Evaluation of oropharynx showed tongue protrudes midline, low position of soft palate Mallampati 2, significant retrognathia. NECK: Supple. No JVD. Thyroid is not palpable. 12.5 inches in circumference. LUNGS: Clear to percussion and to auscultation. Good air exchange. No wheezing or rhonchi. HEART: S1, S2 regular. No murmurs, gallops or rubs. ABDOMEN: Soft and nontender. Bowel sounds are present. No organomegaly appreciated. EXTREMITIES: No clubbing or cyanosis. BUFFING WHEEL FORMER MACHINE: Awake, alert, and oriented x3. Cranial nerves 2 to 7 intact. There is no fasciculation or atrophy noted. No focal deficits observed. ASSESSMENT: 1. Significant excessive daytime sleepiness with [place] Sleepiness Scale 16. Patient takes nap several times during the day even while she is on treatment with Adderall for ADHD. Differential diagnosis include narcolepsy and idiopathic hypersomnia. 2. Multiple awakenings from sleep, significant retrognathia, possible obstructive sleep apnea. 3. Migraines, often in the morning after awakenings. 4. ADHD. 5. Significant amount of movements during sleep, possibly out of the movements. 6 . Acid reflux. 7. Status post right kidney resection for cancer. 8. History of UTI. PLAN: 1. Polysomnography for evaluation of patient's breathing during sleep and to check for abnormal movements. Multiple sleep latency test if sleep study negative for obstructive sleep apnea hypopnea syndrome. 2. CPAP/BiPAP titration if sleep study confirms obstructive sleep apnea- hypopnea syndrome. 3. Preferable position during sleep on the side. 4. No driving if patient feels any sleepiness. Patient is aware of civil and criminal liability for unsafe driving. 5. Sleep hygiene with regular sleep time for at least 7.5-8 hours. 6. Watching weight. Thank you very much for referring this patient for consultation. Sincerely, Paulo Castrejon MD, PhD, FAASM. Diplomat of [place] [employer], Sleep Medicine Board by [place] [employer] [employer] In[employer] [facility] [place] cc: Noé Moon MD Past Medical History Past Medical History: Cancer, GERD/Reflux, Renal Disease Additional Past Medical History / Comment(s): Hepatitis C. HAD HTN WITH LAST -RESOLVED AT THIS TIME. MIGRAINES History of Any Multi-Drug Resistant Organisms: MRSA Date of last positivie culture/infection: 2005 MDRO Source:: RT ARMPIT AND ELBOW Past Surgical History: Section Additional Past Surgical History / Comment(s): C-SEC X 2, lft ankle repair tendon,upper and lower scopes. Laprascopy for endometriosis. Right partial nephrectomy. Past Anesthesia/Blood Transfusion Reactions: No Reported Reaction Past Psychological History: ADD/ADHD, Anxiety, Bipolar, Depression, PTSD Smoking Status: Former smoker Past Alcohol Use History: Occasional Additional Past Alcohol Use History / Comment(s): QUIT CIGARETTES 18 MONTHS AGO, Past Drug Use History: None Reported, Marijuana, Methamphetamine, Opiates Additional Drug Use History / Comment(s): DENIES ANY DRUG USE IN PAST 2 YEARS - Past Family History Mother Family Medical History: Asthma, Diabetes Mellitus, Deep Vein Thrombosis (DVT), Fibromyalgia, Rheumatoid Arthritis (RA) Father Family Medical History: Rheumatoid Arthritis (RA) Additional Family Medical History / Comment(s): RESTLESS LEGS, NARCOLEPSY Sister(s) Additional Family Medical History / Comment(s): IDIOPATHIC HYPERSOMNIA, EPILEPSY Medications and Allergies Home Medications Medication Instructions Recorded Confirmed Type Buprenorphine HCl/Naloxone HCl 1 film SL TID 09/04/22 01/29/25 History [Suboxone 8 mg-2 mg Sl Film] Cetirizine HCl [Zyrtec] 10 mg PO HS 09/04/22 01/22/23 History Docusate [Colace] 100 mg PO BID 09/04/22 01/22/23 History Ibuprofen [Motrin] 800 mg PO Q8H PRN 09/04/22 01/29/25 History Medroxyprogesterone Acetate 150 mg IM ONCE 09/04/22 01/22/23 History [Depo-Provera] Rimegepant Sulfate [Nurtec Odt] 75 mg PO Q2D 09/04/22 01/29/25 History Topiramate [Topamax] 100 mg PO BID 09/04/22 01/29/25 History Montelukast [Singulair] 10 mg PO DAILY 01/22/23 01/22/23 History Sulfamethoxazole/Trimethoprim 1 each PO DAILY 01/22/23 01/22/23 History [Bactrim DS 800-160 mg] Gabapentin 600 mg PO TID 3 Days #9 tab 01/26/23 Rx Fluconazole 150 mg PO ONCE #1 tab 07/05/23 Rx Nitrofurantoin Monohyd/M-Cryst 100 mg PO Q12HR #14 cap 07/05/23 Rx [Macrobid] Dextroamphetamine/Amphetamine 30 mg PO BID 01/29/25 01/29/25 History [Adderall Xr 30 mg Capsule] Levocetirizine Dihydrochloride 2.5 mg PO DAILY 01/29/25 01/29/25 History [Xyzal] Semaglutide [Wegovy] 2.4 mg SQ WEEKLY 01/29/25 01/29/25 History hydrOXYzine HCL [Atarax] 50 mg PO TID 01/29/25 01/29/25 History Allergies Allergy/AdvReac Type Severity Reaction Status Date / Time No Known Allergies Allergy Verified 07/05/23 11:43 Physical Exam Vitals: Vital Signs Temp Pulse Resp BP Pulse Ox 01/29/25 13:37 97.7 F 66 16 135/86 100 Intake and Output 01/28/25 01/29/25 01/29/25 22:59 06:59 14:59 Other: Weight 65.317 kg Sleep Note - Sleep Data ESS Total: 16 - Sleep Note Sleep Note: Temperature: 97.7 F Pulse Rate: 66 Respiratory Rate: 16 Blood Pressure: 135/86 SpO2: 100 Height: 5 ft 3 in Weight: 65.317 kg BMI: Neck Circumference: 12.5
== END ==
LOC: 3 N SLEEP 13:23
PROVIDERS: ATTEND Internal Medicine
DX: G47.8 Other sleep disorders (principal); G47.419 Narcolepsy without cataplexy; G47.10 Hypersomnia, unspecified; G43.909 Migraine, unspecified, not intractable, without status migrainosus; F90.9 Attention-deficit hyperactivity disorder, unspecified type; K21.9 Gastro-esophageal reflux disease without esophagitis; Z90.5 Acquired absence of kidney; Z87.440 Personal history of urinary (tract) infections; Z87.898 Personal history of other specified conditions; Z87.891 Personal history of nicotine dependence
CPT/HCPCS: 99211